=== PATIENT | male | born 1960 | race African-American/Black ===

== ENCOUNTER 2018-03-26 09:53 | Emergency (ER) | payer MEDICARE ==
[2018-03-26 10:16] LABS: INR-International Normal Ratio 1.1; PTT 36.5 SEC (22.9-36.1); Prothrombin Time 14.2 SEC (12.0-14.7)
--- NOTE | 2018-03-26 10:20 | CT ---
CT OF BRAIN PERFORMED WITHOUT CONTRAST ENHANCEMENT: Date: 03/26/18 HISTORY: Patient complaining of right facial droop for last 2 hours. FINDINGS: There is mild ventricular and sulcal prominence. There is decreased attenuation of the periventricula r white matter consistent with some chronic ischemic white matter change. No signs of intracerebral h emorrhage or extra-axial fluid collections. Some sclerotic bony change is seen in the region of the r ight mastoid air cells. The sinuses are clear. IMPRESSION: No acute intracranial abnormalities. Findings telephoned to ER at 1011 hours. CODE CR. POS: [facility]
[2018-03-26 10:24] LABS: #Basophils 0.1 thou/uL (0.0-0.2); #Eosinphils 0.2 thou/uL (0.0-0.7); #Lymphocytes 1.8 thou/uL (1.20-3.40); #Monocytes 0.9 thou/uL (0.11-0.59); #Neutrophils 3.9 thou/uL (1.40-6.50); %Lymphocytes 26.3 % (21.0-51.0); %Monocytes 13.1 % (0.0-10.0); %Neutrophils 55.6 % (42.0-75.0); Hemoglobin 10.7 g/dL (14.0-18.0); MDiff Complete? YES; Mean Corpuscular HGB CONC 29.7 g/dL (32.0-36.0); Mean Corpuscular Hemoglobin 23.8 pg (27.0-31.0); Mean Corpuscular Volume 80.1 fL (78.0-98.0); Mean Platelet Volume 7.6 fL (7.4-10.4); Platelet Count 306 thou/uL (130-400); RBC Distribution Width 15.1 % (11.5-14.5); Red Blood Cell (RBC) Count 4.48 mill/uL (4.70-6.10)
[2018-03-26 10:25] LABS: Anisocytosis SLIGHT = 6-15 cells (100X) (0-5/hpf); Hypochromia SLIGHT = 6-15 cells (100X) (0-5/hpf); PLT Morphology Comment Appears Adequate; Rouleaux Formation SLIGHT = 1-5 cells (100X) (None Seen)
[2018-03-26 10:26] LABS: ALT (SGPT) 15 U/L (8-55); AST (SGOT) 17 U/L (5-34); Alkaline Phosphatase 102 U/L (40-150); Anion Gap 17 mmol/L (10-20); BUN (Urea Nitrogen) 34 mg/dL (8.4-25.7); Bilirubin, Total 0.6 mg/dL (0.2-1.2); CK (CPK) 229 U/L (30-200); Calc. Creatinine Clearance 0 mL/min (70-130); Calcium 9.7 mg/dL (7.8-10.44); Carbon Dioxide 27 mmol/L (22-29); Chloride 97 mmol/L (98-107); Estimated GFR-MDRD 10; Globulin 3.6 g/dL (2.4-3.5); Glucose 243 mg/dL (70-105); Potassium 3.8 mmol/L (3.5-5.1); Protein, Total 7.6 g/dL (6.0-8.3); Sodium 137 mmol/L (136-145)
[2018-03-26 10:27] LABS: CKMB 6.1 ng/mL (0-6.6); Troponin I 0.014 ng/mL (< 0.028)
[2018-03-26] MEDS ORDERED: Aspirin 325 MG TAB ONE (11:13)
== END 2018-03-26 12:02 | disposition short-term general hospital (02) ==
LOC: NAV ERS 09:53
DX: R29.810 Facial weakness (principal); I13.2 Hypertensive heart and chronic kidney disease with heart failure and with stage 5 chronic kidney disease, or end stage renal disease; I50.9 Heart failure, unspecified; E11.22 Type 2 diabetes mellitus with diabetic chronic kidney disease; N18.6 End stage renal disease; Z79.4 Long term (current) use of insulin; Z79.899 Other long term (current) drug therapy; Z86.73 Personal history of transient ischemic attack (TIA), and cerebral infarction without residual deficits; Z87.891 Personal history of nicotine dependence
CPT/HCPCS: 36416; 70450; 80053; 82550; 82553; 84484; 85025; 85610; 85730; 93005

== ENCOUNTER 2018-06-16 18:12 | Inpatient (IN) | payer MEDICARE ==
[2018-06-16 18:38] VITALS: BMI 27.4
[2018-06-16] MEDS ORDERED: Bisacodyl 5 MG TAB PO PRN (19:53)
[2018-06-16] MEDS ORDERED: Ibuprofen 800 MG TAB PO PRN (20:08)
[2018-06-16] MEDS ORDERED: Acetaminophen 500 MG TAB PO PRN (20:08)
[2018-06-16] MEDS: Carvedilol 25 MG TAB PO SCH (20:35)
[2018-06-16] MEDS: Simvastatin 40 MG TAB PO SCH (20:35)
[2018-06-17] MEDS: Carvedilol 25 MG TAB PO SCH ×2 (08:54→20:22)
[2018-06-17] MEDS: Sevelamer Carbonate 800 MG TAB PO SCH ×3 (08:54→17:13)
[2018-06-17] MEDS: NIFEdipine XL 30 MG TAB PO SCH (08:55)
[2018-06-17] MEDS: Lisinopril 10 MG TAB PO SCH (08:55)
[2018-06-17] MEDS ORDERED: HUMULIN SC SCH (09:00)
[2018-06-17 13:42] LABS: ALT (SGPT) Less than 6 U/L (8-55); AST (SGOT) 19 U/L (5-34); Alkaline Phosphatase 82 U/L (40-150); Anion Gap 21 mmol/L (10-20); BUN (Urea Nitrogen) 66 mg/dL (8.4-25.7); Bilirubin, Total 0.4 mg/dL (0.2-1.2); Calc. Creatinine Clearance 9 mL/min (70-130); Carbon Dioxide 23 mmol/L (22-29); Chloride 90 mmol/L (98-107); Estimated GFR-MDRD 5; Globulin 3.7 g/dL (2.4-3.5); Glucose 111 mg/dL (70-105); Potassium 5.2 mmol/L (3.5-5.1); Protein, Total 6.7 g/dL (6.0-8.3); Sodium 129 mmol/L (136-145)
[2018-06-17] MEDS: Ibuprofen 800 MG TAB PO PRN (17:14)
[2018-06-17] MEDS: Simvastatin 40 MG TAB PO SCH (20:23)
[2018-06-17 21:13] LABS: Band 8 % (5-11); Eosinophils 8 % (0-10); Hemoglobin 7.6 g/dL (14.0-18.0); Lymphocytes 23 % (21-51); MDiff Complete? YES; Mean Corpuscular Hemoglobin 25.6 pg (27.0-31.0); Mean Corpuscular Volume 82.4 fL (78.0-98.0); Mean Platelet Volume 6.9 fL (7.4-10.4); Microcytosis SLIGHT = 6-15 cells (100X) (0-5/hpf); Monocytes 12 % (0-10); Neutrophil 49 % (42-75); Platelet Count 274 thou/uL (130-400); RBC Distribution Width 13.8 % (11.5-14.5); Red Blood Cell (RBC) Count 2.96 mill/uL (4.70-6.10); White Blood Cell (WBC) Count 6.9 thou/uL (4.8-10.8)
[2018-06-18] MEDS: Insulin NPH/Reg Insulin Hm 300 UNITS/3 ML VIAL SC SCH (09:44)
[2018-06-18] MEDS: Ibuprofen 800 MG TAB PO PRN ×2 (09:55→20:36)
[2018-06-18] MEDS: Carvedilol 25 MG TAB PO SCH ×2 (17:42→20:36)
[2018-06-18] MEDS: NIFEdipine XL 30 MG TAB PO SCH (17:42)
[2018-06-18] MEDS: Lisinopril 10 MG TAB PO SCH (17:43)
[2018-06-18] MEDS: Sevelamer Carbonate 800 MG TAB PO SCH ×3 (17:43→18:34)
--- NOTE | 2018-06-18 17:50 | PRG ---
DATE OF SERVICE: 06/17/2018 SUBJECTIVE: The patient feels well with only complaint of decreased vision secondary to cataracts. No pain in his eyes. No shortness of breath. No chest pain. No nausea or vomiting. Stable to righ t hip pain. OBJECTIVE: VITAL SIGNS: His temperature is 98.8, pulse 88, respirations 18, O2 sat 93% on room air. LUNGS: Few crackles in the bases. CARDIAC: Regular rhythm. ABDOMEN: Soft, nontender. SKIN AND EXTREMITIES: Displayed trace edema. No clubbing or cyanosis. His right hip shows healing incision. ASSESSMENT: 1. End-stage renal disease, on hemodialysis with missed dialysis, in need of extra dialysis obtained today and tomorrow. 2. Healing open reduction internal fixation of the right hip fracture. 2. Stable hypertension. 3. Diabetes, controlled to goal. PLAN: 1. Continue hemodialysis 3 times weekly. 2. Continue PT and OT. 3. Continue pain relief as needed. 4. Continue Accu-Cheks to monitor and titrate and control diabetes. 5. Continue to monitor vital signs closely and continue home blood pressure meds.
--- NOTE | 2018-06-18 17:59 | PRG ---
DATE OF SERVICE: 06/18/2018 SUBJECTIVE: The patient feels well with no dyspnea, shortness of breath, or chest pain. He is just returning from dialysis. OBJECTIVE: VITAL SIGNS: Temperature is 97, pulse 85, respirations 20, O2 sats 94% on room air. LUNGS: Decreased rales at the bases. CARDIAC: Regular rhythm. ABDOMEN: Soft, nontender. SKIN AND EXTREMITIES: Displayed no edema, clubbing, cyanosis. Right hip is healing well. LABORATORY DATA: Laboratories yesterday showed a BUN of 66, creatinine 11.79, sodium 129, potassium 5.2, chloride 90, bicarbonate 23. ASSESSMENT: 1. Increased congestive heart failure secondary to dialysis early this morning, appears to be improv ed after dialysis 2 days in a row. We will check labs in the a.m. 2. Healing right total hip fracture. We will continue PT and OT. 3. Diabetes, controlled to goal. 4. Blood pressure, controlled to goal. PLAN: 1. Continue PT and OT. 2. Repeat labs in the a.m. 3. Continue dialysis 3 times weekly.
--- NOTE | 2018-06-18 20:25 | HP ---
DATE OF ADMISSION: 06/16/2018 HISTORY OF PRESENT ILLNESS: The patient is a 58-year-old black male with a long history of hypertens ion, diabetes, subsequent complication of end-stage renal disease on hemodialysis who fell at his emma e on June 12 and suffered a right intertrochanteric hip fracture requiring open reduction and in ternal fixation. This was done on June 13 with no complications. He was seen in followup by [facility] carg[facility], Dr. Núñez, continued on dialysis, he was felt to be stable to be transferred to the [facility] for continued PT and OT. At present, he feels well. Minimal pain in his right h ip. No shortness of breath, chest pain, nausea, vomiting, or diarrhea. PAST MEDICAL HISTORY: As mentioned above: Remarkable for diabetes, cataracts, end-stage renal disea se, diastolic heart failure, hypertension. PAST SURGICAL HISTORY: Positive only for the fistula placement. MEDICATIONS: At this time include aspirin 81 daily, tramadol 50 q.6 hours as needed, sevelamer 2400 mg 3 times daily, nifedipine 30 mg daily, lisinopril 20 mg daily, Humulin 70/30 of 20 units subcu claudine ly, carvedilol 37.5 twice daily. He is a nonsmoker, nondrinker. He lives with his . ALLERGIES: He has no known allergies. REVIEW OF SYSTEMS: HEENT: Denies any headaches, dizziness, change in vision or hearing, hoarseness or dysphagia. Pulmonary: Denies cough, sputum production, pneumonia, asthma, tuberculosis. Cardiov ascular: Denies chest pain, orthopnea, paroxysmal nocturnal dyspnea or edema. Gastrointestinal: De nies nausea, vomiting, diarrhea, constipation, abdominal pain. Genitourinary: Denies dysuria, hemat uria, nocturia. Minimal urine output. Musculoskeletal: He has pain in his right hip at this time. Neurologic: Denies localized numbness, weakness in arms or extremities. PHYSICAL EXAMINATION: GENERAL: Patient is a middle-aged black male in no acute distress, oriented x3 and cooperative. VITAL SIGNS: Show him to have blood pressure 120/66, temperature is 98, pulse 85, respirations 20, O 2 sats 97% on room air. HEENT: Pupils are equal, round, and reactive to light and accommodation. Sclerae are anicteric. Co njunctivae pale. Oral mucous membranes well hydrated. NECK: Supple, no nodes or masses. JVP is not elevated. LUNGS: Clear. CARDIAC: Regular rhythm. No gallops or murmurs. ABDOMEN: Soft, nontender with no masses or organomegaly. SKIN/EXTREMITIES: Show healing incision over the right lateral hip. NEUROLOGICAL: Shows no focal findings. LABORATORY DATA: White count 6400, hematocrit 26, hemoglobin 8. Sodium is 132, potassium 4.4, chlor brigida 93, bicarbonate 28, BUN 42, creatinine 8.68, glucose 124, calcium 9.2, phosphorus 7.2. ASSESSMENT AND PLAN: A 58-year-old black male with a history of diabetes and hypertension with subse quent complication, end-stage renal disease on hemodialysis who had been doing well until he fell and suffered an intertrochanteric fracture of his right hip and is now status post open reduction and in ternal fixation. He is healing well, cooperating well with therapy and is admitted to [facility] for further therapy. He will be continued on dialysis 3 times weekly and will be continued on his home medications of lisinopril, nifedipine, and carvedilol for blood pressure control, Renvela for hyperph osphatemia, simvastatin 40 mg nightly and will be on Accu-Cheks q.a.c. and at bedtime and monitor magnolia peña.
[2018-06-18] MEDS: Simvastatin 40 MG TAB PO SCH (20:36)
[2018-06-19 05:54] LABS: Anion Gap 17 mmol/L (10-20); BUN (Urea Nitrogen) 38 mg/dL (8.4-25.7); Calc. Creatinine Clearance 14 mL/min (70-130); Calcium 9.5 mg/dL (7.8-10.44); Carbon Dioxide 30 mmol/L (22-29); Chloride 94 mmol/L (98-107); Estimated GFR-MDRD 9; Glucose 100 mg/dL (70-105); Potassium 4.3 mmol/L (3.5-5.1); Sodium 137 mmol/L (136-145)
[2018-06-19] MEDS: Insulin NPH/Reg Insulin Hm 300 UNITS/3 ML VIAL SC SCH (08:25)
[2018-06-19] MEDS: Ibuprofen 800 MG TAB PO PRN ×2 (08:31→20:30)
[2018-06-19] MEDS: Carvedilol 25 MG TAB PO SCH ×2 (17:50→20:29)
[2018-06-19] MEDS: NIFEdipine XL 30 MG TAB PO SCH (17:51)
[2018-06-19] MEDS: Sevelamer Carbonate 800 MG TAB PO SCH ×3 (17:51→17:52)
[2018-06-19] MEDS: Lisinopril 10 MG TAB PO SCH (17:51)
[2018-06-19] MEDS: Simvastatin 40 MG TAB PO SCH (20:30)
[2018-06-20] MEDS: Carvedilol 25 MG TAB PO SCH ×2 (09:30→21:00)
[2018-06-20] MEDS: Lisinopril 10 MG TAB PO SCH (09:30)
[2018-06-20] MEDS: NIFEdipine XL 30 MG TAB PO SCH (09:32)
[2018-06-20] MEDS: Sevelamer Carbonate 800 MG TAB PO SCH ×3 (09:35→17:26)
[2018-06-20] MEDS: Insulin NPH/Reg Insulin Hm 300 UNITS/3 ML VIAL SC SCH (09:35)
--- NOTE | 2018-06-20 18:05 | PRG ---
DATE OF SERVICE: 06/19/2018 SUBJECTIVE: The patient is just returning from dialysis, feels well with no complaints of shortness of breath, nausea and vomiting, abdominal pain. Has stable pain in his right hip. OBJECTIVE: VITAL SIGNS: Shows blood pressure is 115/69, temperature is 98, pulse 94, respirations 20, O2 sats 9 3% on room air. LUNGS: Clear. CARDIAC: Showed regular rhythm. ABDOMEN: Soft, nontender. SKIN AND EXTREMITIES: Display no edema, clubbing, cyanosis. LABORATORY: Shows Accu-Cheks range from 199-223, only on Accu-Chek 20 units Humulin in subcu every m orning. ASSESSMENT: 1. Stable end-stage renal disease on hemodialysis 3 times weekly. 2. Healing right intertrochanteric hip fracture. 3. Type 2 diabetes, fair control with Accu-Cheks less than 200. 4. Hypertension, controlled to goal. PLAN: Continue PT, OT. Continue pain relief. Continue dialysis 3 times weekly. Continue Accu-Chek s to monitor diabetes, but with no insulin unless greater than 200.
--- NOTE | 2018-06-20 19:03 | PRG ---
DATE OF SERVICE: 06/20/2018 SUBJECTIVE: The patient feels well. He has had a good day of therapy today, walked several times wi th the nurses up to 7 feet and has been outside and stated he is having controlled pain, only on Tyle nol and ibuprofen, not asking for anything stronger. Denying any shortness of breath, cough, sputum production, chest pain. ASSESSMENT: 1. Resolving right intertrochanteric hip fracture. 2. Stable end-stage renal disease on hemodialysis. 3. Hypertension, controlled to goal. 4. Type 2 diabetes, stable. PLAN: 1. Continue PT, OT. Continue hemodialysis. 2. Continue Accu-Cheks to monitor. 3. Diabetes. 4. Repeat labs on Saturday.
[2018-06-20] MEDS: Ibuprofen 800 MG TAB PO PRN (21:02)
[2018-06-20] MEDS: Simvastatin 40 MG TAB PO SCH (21:02)
[2018-06-21] MEDS: Sevelamer Carbonate 800 MG TAB PO SCH ×3 (08:36→16:28)
[2018-06-21] MEDS: Carvedilol 25 MG TAB PO SCH ×2 (08:36→21:22)
[2018-06-21] MEDS: Insulin NPH/Reg Insulin Hm 300 UNITS/3 ML VIAL SC SCH (08:37)
[2018-06-21] MEDS: NIFEdipine XL 30 MG TAB PO SCH (08:37)
[2018-06-21] MEDS: Lisinopril 10 MG TAB PO SCH (08:37)
[2018-06-21] MEDS: Ibuprofen 800 MG TAB PO PRN ×2 (08:38→21:22)
--- NOTE | 2018-06-21 16:05 | PRG ---
DATE OF SERVICE: 06/21/2018 SUBJECTIVE: Mr. Singh is doing well. He was seen on his way to dialysis. He apparently is getting stronger and was able to mcc pull himself up out of his bed. No concerns or questions. OBJECTIVE: VITAL SIGNS: He is afebrile, heart rate 84, respirations 18, oxygen saturation 99% on room air, bloo d pressure 157/75. CARDIOVASCULAR: S1, S2 plus. RESPIRATORY SYSTEM: Normal vesicular breath sounds. ABDOMEN: Soft, nontender, bowel sounds heard in all quadrants. EXTREMITIES: Without cyanosis or clubbing. Trace edema right leg, right hip incision with dressing. CENTRAL NERVOUS SYSTEM: Generalized weakness. IMPRESSION: 1. Status post fall and right hip fracture and open reduction internal fixation. 2. Diabetes mellitus type 2. 3. Hypertension. 4. End-stage renal disease on hemodialysis. 5. Dyslipidemia. PLAN: 1. Continue hemodialysis. He is back on his schedule Saturday, , Saturday. 2. 1800 calorie heart healthy, renal diet. 3. Accu-Cheks with sliding scale coverage. 4. Incision care. 5. Orthopedic precautions. 6. DVT and stress ulcer prophylaxis. 7. Decubitus precautions. 8. Routine laboratory values.
[2018-06-21] MEDS: Simvastatin 40 MG TAB PO SCH (21:22)
[2018-06-22] MEDS: Loperamide HCl 2 MG CAP PO PRN (04:49)
[2018-06-22] MEDS: Sevelamer Carbonate 800 MG TAB PO SCH ×3 (08:37→16:53)
[2018-06-22] MEDS: Carvedilol 25 MG TAB PO SCH ×2 (08:38→20:36)
[2018-06-22] MEDS: Lisinopril 10 MG TAB PO SCH (08:39)
[2018-06-22] MEDS: NIFEdipine XL 30 MG TAB PO SCH (08:39)
[2018-06-22] MEDS: Insulin NPH/Reg Insulin Hm 300 UNITS/3 ML VIAL SC SCH (08:42)
[2018-06-22] MEDS ORDERED: prednisoLONE 1% Ophth Susp 5 ml Bottle EA EYE SCH (11:00)
--- NOTE | 2018-06-22 15:24 | PRG ---
DATE OF SERVICE: 06/22/2018 SUBJECTIVE: Mr. Singh is resting comfortably. No family at bedside. He apparently is also on pred nisolone acetate eye drops and it has been started. OBJECTIVE: VITAL SIGNS: He is afebrile; heart rate 86; respirations 18; oxygen saturation 99% on room air; bloo d pressure was elevated this morning 185/82, this is before he got any of his medications. CARDIOVASCULAR SYSTEM: S1 and S2 plus. RESPIRATORY SYSTEM: Normal vesicular breath sounds. ABDOMEN: Soft, nontender, bowel sounds heard in all quadrants. EXTREMITIES: Without cyanosis or clubbing. Trace edema, right leg. CENTRAL NERVOUS SYSTEM: Generalized weakness. IMPRESSION: 1. Status post fall and right hip fracture, status post open reduction and internal fixation. 2. Diabetes mellitus, type 2. 3. Hypertension, not well controlled. 4. End-stage renal disease, on hemodialysis. 5. Dyslipidemia. PLAN: 1. Orthopedic precautions and incision care. 2. An 1800-calorie heart healthy, renal diet. 3. Hemodialysis. 4. DVT and stress ulcer prophylaxis. 5. Decubitus precautions. 6. Physical therapy. 7. Monitor blood pressure and adjust medications as needed. Dr. Flynn will be back tonight.
[2018-06-22] MEDS: Simvastatin 40 MG TAB PO SCH (20:36)
[2018-06-22] MEDS: Ibuprofen 800 MG TAB PO PRN (21:57)
[2018-06-23 05:13] LABS: #Basophils 0.3 thou/uL (0.0-0.2); #Eosinphils 1.5 thou/uL (0.0-0.7); #Lymphocytes 2.4 thou/uL (1.20-3.40); #Monocytes 1.6 thou/uL (0.11-0.59); #Neutrophils 6.4 thou/uL (1.40-6.50); %Basophils 2.5 % (0.0-1.0); %Eosinophils 12.3 % (0.0-10.0); %Monocytes 13.2 % (0.0-10.0); Hemoglobin 7.8 g/dL (14.0-18.0); Mean Corpuscular HGB CONC 30.4 g/dL (32.0-36.0); Mean Corpuscular Hemoglobin 25.3 pg (27.0-31.0); Mean Corpuscular Volume 83.4 fL (78.0-98.0); Mean Platelet Volume 5.8 fL (7.4-10.4); Platelet Count 418 thou/uL (130-400); RBC Distribution Width 14.1 % (11.5-14.5); Red Blood Cell (RBC) Count 3.09 mill/uL (4.70-6.10); White Blood Cell (WBC) Count 12.2 thou/uL (4.8-10.8)
[2018-06-23 05:31] LABS: ALT (SGPT) 6 U/L (8-55); AST (SGOT) 25 U/L (5-34); Albumin 3.2 g/dL (3.5-5.0); Alkaline Phosphatase 111 U/L (40-150); Anion Gap 17 mmol/L (10-20); BUN (Urea Nitrogen) 53 mg/dL (8.4-25.7); Bilirubin, Total 0.3 mg/dL (0.2-1.2); Calc. Creatinine Clearance 13 mL/min (70-130); Calcium 9.6 mg/dL (7.8-10.44); Carbon Dioxide 26 mmol/L (22-29); Chloride 95 mmol/L (98-107); Estimated GFR-MDRD 8; Globulin 3.4 g/dL (2.4-3.5); Glucose 132 mg/dL (70-105); Potassium 3.9 mmol/L (3.5-5.1); Protein, Total 6.6 g/dL (6.0-8.3); Sodium 134 mmol/L (136-145)
[2018-06-23] MEDS: Sevelamer Carbonate 800 MG TAB PO SCH ×3 (08:19→17:25)
[2018-06-23] MEDS: Carvedilol 25 MG TAB PO SCH ×2 (09:17→21:23)
[2018-06-23] MEDS: Lisinopril 10 MG TAB PO SCH (09:17)
[2018-06-23] MEDS: NIFEdipine XL 30 MG TAB PO SCH (09:18)
[2018-06-23] MEDS: Ibuprofen 800 MG TAB PO PRN ×2 (09:18→17:25)
[2018-06-23] MEDS: Insulin NPH/Reg Insulin Hm 300 UNITS/3 ML VIAL SC SCH (09:18)
[2018-06-23] MEDS: prednisoLONE 1% Ophth Susp 5 ml Bottle EA EYE SCH (09:19)
[2018-06-23] MEDS: Acetaminophen 500 MG TAB PO PRN (21:23)
[2018-06-23] MEDS: Simvastatin 40 MG TAB PO SCH (21:23)
--- NOTE | 2018-06-24 07:19 | PRG ---
DATE OF SERVICE: 06/23/2018 SUBJECTIVE: The patient feels well, sitting up in the bed, eating supper. He states he feels no bro[place] sea, vomiting, shortness of breath, chest pain. He is only having pain in his hip on ambulation, but not at rest. He is tolerating hemodialysis well. OBJECTIVE: VITAL SIGNS: Shows blood pressure is 135/63, temperature is 99.3, pulse 90, respirations 16, O2 sats 99% on room air. LUNGS: Clear. CARDIAC: Regular rhythm. ABDOMEN: Soft and nontender. Hip shows healing lateral incision. LABORATORY: White count 12,200, hematocrit 25, hemoglobin 7.8. Sodium 134, potassium 3.9, chloride 95, bicarbonate 26, BUN 53, creatinine 8.06, alkaline phosphatase 111, albumin 3.2. ASSESSMENT: 1. Resolving right intertrochanteric hip fracture. 2. Stable end-stage renal disease on hemodialysis. 3. Stable hypertension, controlled to goal. 4. Fairly, well controlled diabetes. PLAN: Continue PT, OT. Continue hemodialysis 3 times weekly. Continue Accu-Cheks to monitor and ti trate and control diabetes.
[2018-06-24] MEDS: prednisoLONE 1% Ophth Susp 5 ml Bottle EA EYE SCH (09:20)
[2018-06-24] MEDS: Sevelamer Carbonate 800 MG TAB PO SCH ×2 (17:19)
[2018-06-24] MEDS: Carvedilol 25 MG TAB PO SCH ×2 (17:19→20:23)
[2018-06-24] MEDS: Insulin NPH/Reg Insulin Hm 300 UNITS/3 ML VIAL SC SCH ×2 (17:19→17:24)
[2018-06-24] MEDS: Lisinopril 10 MG TAB PO SCH (17:22)
[2018-06-24] MEDS: NIFEdipine XL 30 MG TAB PO SCH (17:23)
[2018-06-24] MEDS: Simvastatin 40 MG TAB PO SCH (20:23)
[2018-06-24] MEDS: Ibuprofen 800 MG TAB PO PRN (20:23)
[2018-06-25 05:10] LABS: #Basophils 0.3 thou/uL (0.0-0.2); #Eosinphils 0.9 thou/uL (0.0-0.7); #Lymphocytes 2.4 thou/uL (1.20-3.40); #Monocytes 1.7 thou/uL (0.11-0.59); #Neutrophils 7.3 thou/uL (1.40-6.50); %Basophils 2.1 % (0.0-1.0); %Eosinophils 6.9 % (0.0-10.0); %Lymphocytes 19.1 % (21.0-51.0); %Monocytes 13.2 % (0.0-10.0); %Neutrophils 58.7 % (42.0-75.0); Hemoglobin 8.9 g/dL (14.0-18.0); Mean Corpuscular HGB CONC 30.2 g/dL (32.0-36.0); Mean Corpuscular Hemoglobin 25.2 pg (27.0-31.0); Mean Corpuscular Volume 83.3 fL (78.0-98.0); Mean Platelet Volume 6.4 fL (7.4-10.4); Platelet Count 454 thou/uL (130-400); RBC Distribution Width 14.2 % (11.5-14.5); Red Blood Cell (RBC) Count 3.52 mill/uL (4.70-6.10); White Blood Cell (WBC) Count 12.5 thou/uL (4.8-10.8)
[2018-06-25] MEDS: Sevelamer Carbonate 800 MG TAB PO SCH ×3 (08:06→16:46)
[2018-06-25] MEDS: Lisinopril 10 MG TAB PO SCH (08:06)
[2018-06-25] MEDS: Carvedilol 25 MG TAB PO SCH ×2 (08:07→20:40)
[2018-06-25] MEDS: Insulin NPH/Reg Insulin Hm 300 UNITS/3 ML VIAL SC SCH (08:07)
[2018-06-25] MEDS: prednisoLONE 1% Ophth Susp 5 ml Bottle EA EYE SCH (08:08)
[2018-06-25] MEDS: NIFEdipine XL 30 MG TAB PO SCH (08:08)
[2018-06-25 08:38] LABS: Bilirubin Negative (Negative); Blood, Urine Trace (Negative); Clarity Clear (Clear); Glucose, Urine (Dipstick) 100 mg/dL (Negative); Leukocyte Negative (Negative); Nitrite Negative (Negative); Protein, Urine (Dipstick) 100 mg/dL (Neg-Trace); Urobilinogen 0.2 mg/dL (0.2-1.0)
[2018-06-25 08:44] LABS: Bacteria/HPF None Seen HPF (None Seen); Crystals/HPF RARE SODIUM URATE HPF (Negative); RBC/HPF 0-3 HPF (0-3); Squamous Epithelial 0-3 HPF (0-3); WBC/HPF 0-3 HPF (0-3)
[2018-06-25] MEDS: Ibuprofen 800 MG TAB PO PRN ×2 (10:51→20:40)
[2018-06-25] MEDS: Acetaminophen 500 MG TAB PO PRN (13:55)
--- NOTE | 2018-06-25 18:07 | PRG ---
DATE OF PROGRESS NOTE: 06/24/2018 SUBJECTIVE: The patient is awake and alert, sitting in a chair, back from dialysis with no complaint s, feels well with no nausea and vomiting. Good appetite. No shortness of breath, decreasing pain i n his hip. OBJECTIVE: VITAL SIGNS: Blood pressure is 163/72, temperature 99.8, pulse 83, respirations 18, O2 sats 97% on r oom air. LUNGS: Clear. CARDIAC EXAMINATION: Showed regular rhythm. SKIN: Incision appears to be healing well. ASSESSMENT: 1. Resolving right hip fracture, status post open reduction and internal fixation. 2. Stable end-stage renal disease. 3. Stable hypertension. 4. Well-controlled diabetes. 5. Slight increase in white count. PLAN: Repeat CBC, comp met, continue PT, OT. Continue hemodialysis. Continue Accu-Cheks.
--- NOTE | 2018-06-25 18:15 | PRG ---
DATE OF PROGRESS NOTE: 06/25/2018 SUBJECTIVE: The patient feels well, sitting up in bed, visiting with family. Has cooperated well wi th therapy today. Still max transfers sit to stand, moderate stand to sit. Did walk 55 feet and 40 feet with a rolling walker, mild dizziness on standing and gait appears to be improving daily, but no t ready to do ADLs. Accu-Cheks have ranged from 124 to 177. White count 12,500, hematocrit 29, hemo globin 8.9. Urinalysis within normal limits. Right hip appears to be healing well. ASSESSMENT: 1. Resolving right hip intertrochanteric fracture status post open reduction and internal fixation. 2. Stable type 2 diabetes. 3. Hypertension, controlled to goal. 4. End-stage renal disease on hemodialysis, tolerating well. PLAN: 1. Continue PT/OT, is unable to maintain ADLs. 2. Continue hemodialysis for end-stage renal disease 3 times weekly. 3. Continue blood pressure control. 4. Continue Accu-Cheks, titrate and control diabetes.
[2018-06-25] MEDS ORDERED: Ondansetron ODT 4 MG TAB PO PRN (18:51)
[2018-06-25] MEDS: Simvastatin 40 MG TAB PO SCH (20:40)
[2018-06-26] MEDS: Sevelamer Carbonate 800 MG TAB PO SCH ×3 (08:10→17:13)
[2018-06-26] MEDS: Insulin NPH/Reg Insulin Hm 300 UNITS/3 ML VIAL SC SCH (08:11)
[2018-06-26] MEDS: Carvedilol 25 MG TAB PO SCH ×2 (08:11→20:52)
[2018-06-26] MEDS: Lisinopril 10 MG TAB PO SCH (08:11)
[2018-06-26] MEDS: NIFEdipine XL 30 MG TAB PO SCH (08:11)
[2018-06-26] MEDS: Ibuprofen 800 MG TAB PO PRN ×2 (08:12→15:27)
[2018-06-26] MEDS: prednisoLONE 1% Ophth Susp 5 ml Bottle EA EYE SCH (08:12)
[2018-06-26] MEDS: Simvastatin 40 MG TAB PO SCH (20:53)
[2018-06-27] MEDS: Ibuprofen 800 MG TAB PO PRN ×2 (06:13→20:50)
--- NOTE | 2018-06-27 07:41 | PRG ---
DATE OF SERVICE: 06/26/2018 SUBJECTIVE: The patient is sitting up in the bed, waiting for supper with no complaints of shortness of breath, chest pain, and decreasing leg pain. OBJECTIVE: GENERAL: Physical therapy states that the patient is unable to have therapy yesterday secondary to d ialysis. VITAL SIGNS: Show temperature of 98, pulse 83, respirations 18, O2 sats 98% on room air, blood press ure 141/65. LABORATORY DATA: White count 12,500, hematocrit 29, hemoglobin 8.9. Accu-Cheks range from 130-199. Hip incision is healing well. ASSESSMENT: 1. Resolving right hip intertrochanteric fracture status post open reduction and internal fixation. 2. Stable type 2 diabetes. 3. Stable hypertension. 4. End-stage renal disease, tolerating dialysis 3 times weekly. PLAN: 1. Continue PT, OT and discuss progress with therapy. 2. Continue hemodialysis 3 times weekly. 3. Continue to monitor Accu-Cheks and titrate and control diabetes. 4. Continue to monitor blood pressure.
[2018-06-27] MEDS: Carvedilol 25 MG TAB PO SCH ×2 (08:47→19:45)
[2018-06-27] MEDS: NIFEdipine XL 30 MG TAB PO SCH (08:48)
[2018-06-27] MEDS: Lisinopril 10 MG TAB PO SCH (08:49)
[2018-06-27] MEDS: Sevelamer Carbonate 800 MG TAB PO SCH ×3 (08:49→16:31)
[2018-06-27] MEDS: Insulin NPH/Reg Insulin Hm 300 UNITS/3 ML VIAL SC SCH (08:50)
[2018-06-27] MEDS: prednisoLONE 1% Ophth Susp 5 ml Bottle EA EYE SCH (08:50)
[2018-06-27] MEDS: Acetaminophen 500 MG TAB PO PRN (14:08)
[2018-06-27] MEDS: Loperamide HCl 2 MG CAP PO PRN ×2 (14:08→19:47)
[2018-06-27] MEDS: Simvastatin 40 MG TAB PO SCH (19:46)
[2018-06-28] MEDS: Lisinopril 10 MG TAB PO SCH (07:46)
[2018-06-28] MEDS: Sevelamer Carbonate 800 MG TAB PO SCH ×3 (07:46→18:37)
[2018-06-28] MEDS: Carvedilol 25 MG TAB PO SCH ×2 (07:47→20:19)
[2018-06-28] MEDS: NIFEdipine XL 30 MG TAB PO SCH (07:48)
--- NOTE | 2018-06-28 08:23 | PRG ---
DATE OF SERVICE: 06/28/2018. SUBJECTIVE: Mr. Singh is a very pleasant 58-year-old black male that fell and suffered a right inte rtrochanteric hip fracture. He had an open reduction and internal fixation done. He was stabilized with his hypertension, diabetes, end-stage renal disease on hemodialysis and diastolic congestive hea rt failure. Then, he was transferred to [facility] for physical therapy and occupati onal therapy to increase his strength and stamina. The patient is presently sleeping, but was awakened. He oriented fairly quickly, states he is doing well, has no complaints. With physical therapy yesterday, he walked 45 feet and then 30 feet. He is slowly progressing. OBJECTIVE: VITAL SIGNS: Reveal blood pressure 155/84 last night, pulse 77 to 86, respirations 18, O2 sat 99% on room air, T-max 98.0. GENERAL: This is a well-developed, well-nourished, slightly obese black male in no apparent distress at this time. HEENT: Reveals normocephalic, nontraumatic cranium. Nose and throat are somewhat dry. NECK: Supple, without mass, nodes or bruits. CHEST: Clear to auscultation. No rales, rhonchi, wheezes or cough is heard. CARDIOVASCULAR: Hear reveals a regular rate and rhythm without murmurs, gallops or rubs. ABDOMEN: Obese, soft, nontender, without organomegaly, normal bowel sounds are noted. No rebound or guarding is noted. GENITOURINARY: Deferred. EXTREMITIES: Reveal no clubbing, cyanosis or edema. ASSESSMENT: 1. Fractured right intertrochanteric hip with resolving pain. 2. Open reduction and internal fixation of the same. 3. Type 2 diabetes, stable. 4. Hypertension. 5. End-stage renal disease on hemodialysis 3 times a week. 6. Diastolic congestive heart failure. PLAN: 1. Continue hemodialysis 3 times a week. 2. Continue physical therapy and occupational therapy. 3. Continue to monitor the patient's diabetes with Accu-Cheks a.c. and at bedtime. 4. Continue to monitor the patient's blood pressure closely. 5. Continue to monitor the patient for signs and symptoms of congestive heart failure. 6. Continue present therapy.
[2018-06-28] MEDS: Acetaminophen 500 MG TAB PO PRN (08:32)
[2018-06-28] MEDS: prednisoLONE 1% Ophth Susp 5 ml Bottle EA EYE SCH (08:32)
[2018-06-28] MEDS: Insulin NPH/Reg Insulin Hm 300 UNITS/3 ML VIAL SC SCH (08:33)
[2018-06-28] MEDS: Ibuprofen 800 MG TAB PO PRN ×2 (08:33→20:22)
[2018-06-28] MEDS: Simvastatin 40 MG TAB PO SCH (20:20)
--- NOTE | 2018-06-29 06:47 | PRG ---
DATE OF SERVICE: 06/29/2018. SUBJECTIVE: Mr. Singh is a very pleasant 58-year-old black male. Unfortunately, he fell, suffered a right intertrochanteric hip fracture. He had to have an open reduction and internal fixation done. Eventually, he was stabilized and transferred to [facility] for PT and OT. He has comorbidities of hypertension, diabetes, and end-stage renal disease. He also has diastolic congesti ve heart failure. The patient is awake and states he is doing very well. He states he had a great day yesterday and is looking forward to restarting his therapy tomorrow. OBJECTIVE: VITAL SIGNS: This morning reveal blood pressure 136/77, pulse 91, respirations 18-20, O2 sat 97%-99% on room air, T-max 98.9. GENERAL: This is a well-developed, well-nourished, slightly obese black male in no apparent distress at this time. HEENT: Reveals normocephalic, nontraumatic cranium. Pupils equal, round, and reactive. Extraocular movements intact. Nose and throat are slightly dry. NECK: Supple, without mass, nodes or bruits. LUNGS: Chest is clear to auscultation. No rales, rhonchi or wheezes are noted. No cough is noted. HEART: Reveals a regular rate and rhythm without murmurs, gallops or rubs. ABDOMEN: Obese, soft, and nontender. No organomegaly is noted. Normal bowel sounds are noted in al l 4 quadrants. No rebound or guarding is noted. GENITOURINARY: Deferred. EXTREMITIES: Reveal no clubbing, cyanosis or edema. NEUROLOGIC: Right intertrochanteric hip area is covered. He complains of no significant pain there. ASSESSMENT: 1. Fractured right intertrochanteric hip, status post open reduction and internal fixation. 2. Diabetes type 2. 3. Hypertension. 4. End-stage renal disease on hemodialysis 3 times a week. 5. Diastolic congestive heart failure. PLAN: 1. Restart physical therapy and occupational therapy tomorrow. 2. Continue to monitor the patient diabetes with Accu-Cheks a.c. and at bedtime. 3. Continue to monitor the patient's blood pressure closely. 4. Continue hemodialysis 3 times a week. 5. Monitor the patient for signs and symptoms of congestive heart failure. 6. Continue present course of therapy.
[2018-06-29] MEDS: Ibuprofen 800 MG TAB PO PRN ×2 (07:49→20:13)
[2018-06-29] MEDS: Sevelamer Carbonate 800 MG TAB PO SCH ×3 (08:14→17:34)
[2018-06-29] MEDS: Carvedilol 25 MG TAB PO SCH ×2 (08:15→20:13)
[2018-06-29] MEDS: Insulin NPH/Reg Insulin Hm 300 UNITS/3 ML VIAL SC SCH (08:18)
[2018-06-29] MEDS: Lisinopril 10 MG TAB PO SCH (08:20)
[2018-06-29] MEDS: NIFEdipine XL 30 MG TAB PO SCH (08:23)
[2018-06-29] MEDS: prednisoLONE 1% Ophth Susp 5 ml Bottle EA EYE SCH (09:08)
[2018-06-29] MEDS: Simvastatin 40 MG TAB PO SCH (20:13)
[2018-06-30 05:50] LABS: Anion Gap 18 mmol/L (10-20); BUN (Urea Nitrogen) 68 mg/dL (8.4-25.7); Calc. Creatinine Clearance 14 mL/min (70-130); Calcium 9.5 mg/dL (7.8-10.44); Carbon Dioxide 25 mmol/L (22-29); Chloride 96 mmol/L (98-107); Estimated GFR-MDRD 9; Glucose 168 mg/dL (70-105); Potassium 3.5 mmol/L (3.5-5.1); Sodium 135 mmol/L (136-145)
[2018-06-30] MEDS: Sevelamer Carbonate 800 MG TAB PO SCH ×3 (08:27→17:19)
[2018-06-30] MEDS: Carvedilol 25 MG TAB PO SCH ×2 (08:27→20:00)
[2018-06-30] MEDS: Insulin NPH/Reg Insulin Hm 300 UNITS/3 ML VIAL SC SCH (08:28)
[2018-06-30] MEDS: prednisoLONE 1% Ophth Susp 5 ml Bottle EA EYE SCH (08:29)
[2018-06-30] MEDS: Ibuprofen 800 MG TAB PO PRN ×2 (08:29→20:01)
[2018-06-30] MEDS: Lisinopril 10 MG TAB PO SCH (08:29)
[2018-06-30] MEDS: NIFEdipine XL 30 MG TAB PO SCH (08:29)
[2018-06-30] MEDS: Acetaminophen 500 MG TAB PO PRN (11:27)
[2018-06-30] MEDS: Simvastatin 40 MG TAB PO SCH (20:01)
[2018-06-30] MEDS: Loperamide HCl 2 MG CAP PO PRN (20:01)
[2018-07-01] MEDS: Sevelamer Carbonate 800 MG TAB PO SCH ×3 (08:22→16:53)
[2018-07-01] MEDS: Insulin NPH/Reg Insulin Hm 300 UNITS/3 ML VIAL SC SCH (08:23)
[2018-07-01] MEDS: Lisinopril 10 MG TAB PO SCH (08:23)
[2018-07-01] MEDS: Carvedilol 25 MG TAB PO SCH ×2 (08:23→16:52)
[2018-07-01] MEDS: Ibuprofen 800 MG TAB PO PRN (08:24)
[2018-07-01] MEDS: prednisoLONE 1% Ophth Susp 5 ml Bottle EA EYE SCH (08:24)
[2018-07-01] MEDS: NIFEdipine XL 30 MG TAB PO SCH (08:24)
[2018-07-01] MEDS: Acetaminophen 500 MG TAB PO PRN (14:53)
[2018-07-01] MEDS: Simvastatin 40 MG TAB PO SCH (20:07)
[2018-07-02] MEDS: Ibuprofen 800 MG TAB PO PRN ×2 (01:09→18:01)
[2018-07-02] MEDS: Sevelamer Carbonate 800 MG TAB PO SCH ×3 (08:39→17:59)
[2018-07-02] MEDS: Insulin NPH/Reg Insulin Hm 300 UNITS/3 ML VIAL SC SCH (08:40)
[2018-07-02] MEDS: Carvedilol 25 MG TAB PO SCH ×2 (08:40→17:59)
[2018-07-02] MEDS: Lisinopril 10 MG TAB PO SCH (08:41)
[2018-07-02] MEDS: prednisoLONE 1% Ophth Susp 5 ml Bottle EA EYE SCH (08:41)
[2018-07-02] MEDS: NIFEdipine XL 30 MG TAB PO SCH (08:42)
[2018-07-02] MEDS ORDERED: Lisinopril 10 MG TAB PO SCH ×2 (17:37→17:45)
--- NOTE | 2018-07-02 19:11 | PRG ---
DATE OF SERVICE: 07/01/2018 SUBJECTIVE: The patient is returning back from dialysis today, is nauseated with no shortness of filippo ath, chest pain or dizziness. OBJECTIVE: VITAL SIGNS: Show temperature of 97.9, pulse 83, respirations 18, O2 sats 97% on room air, blood pre ssure 174/81. LUNGS: Clear. CARDIAC: Shows regular rhythm. ABDOMEN: Soft and nontender. SKIN AND EXTREMITIES: Showed no edema, clubbing or cyanosis. There is a healing incision in the rig ht lateral leg. PT states that the patient is walking 55 feet and 54 feet with rest breaks in betwee n, making progress, but not met any goals yet. ASSESSMENT: 1. Resolving right hip fracture status post open reduction and internal fixation. 2. Stable end-stage renal disease on hemodialysis 3 times weekly. 3. Stable type 2 diabetes. Accu-Cheks ranging usually less than 200. 4. Diastolic heart failure, stable. PLAN: 1. Continue hemodialysis 3 times weekly. 2. Increase insulin to 25 units daily. 3. Give Zofran as needed for nausea. 4. Continue PT, OT and discussed with the therapist.
--- NOTE | 2018-07-02 19:23 | PRG ---
DATE OF SERVICE: 06/30/2018 SUBJECTIVE: The patient is resting in bed after therapy, feels well with no complaints, having decre asing pain in his leg. No headaches or dizziness. OBJECTIVE: VITAL SIGNS: Temperature is 97.5, pulse 86, respirations 18, O2 sats 97% on room air, blood pressure 178/82. LUNGS: Clear. CARDIAC: Showed regular rhythm. ABDOMEN: Soft and nontender. SKIN AND EXTREMITIES: Show no edema, clubbing, cyanosis. Accu-Cheks range from , sodium 135, potassium 3.5, chloride 96, bicarbonate 25, BUN is 68, creat inine 7.55. Abdomen is soft and nontender. Right hip incision healing well. ASSESSMENT: 1. Resolving right hip fracture, status post open reduction fixation. 2. Stable type 2 diabetes. 3. Stable hypertension. 4. Stable end-stage renal disease on hemodialysis 3 times weekly. 5. Asymptomatic diastolic heart failure. PLAN: 1. Continue PT, OT. Continue Accu-Cheks to monitor and titrate and control diabetes. 2. Continue hemodialysis 3 times weekly. 3. Continue to monitor shortness of breath.
--- NOTE | 2018-07-02 20:10 | PRG ---
DATE OF SERVICE: 07/02/2018 SUBJECTIVE: The patient feels well, lying in bed. He has done therapy today with no difficulty and is asking when he can be discharged home. He is to follow up with orthopedic surgeon in 2 days. OBJECTIVE: VITAL SIGNS: Blood pressure, however, is elevated 192/86 to 171/75 temperature is 97, respirations 2 0, O2 sats 99% on room air. LUNGS: Clear. CARDIAC: Shows regular rhythm. ABDOMEN: Soft and nontender. ASSESSMENT AND PLAN: 1. Hypertension with persistent lack of control. We will increase lisinopril 25 daily. 2. Type 2 diabetes on increased insulin 25 units, Humulin every morning. We will continue to monito r. 3. End-stage renal disease on hemodialysis 3 times weekly. 4. Right hip fracture status post open reduction and internal fixation, improving with physical therapy assistant apy. He will follow up with orthopedic surgeon in 2 days.
[2018-07-02] MEDS: Acetaminophen 500 MG TAB PO PRN (20:21)
[2018-07-02] MEDS: Simvastatin 40 MG TAB PO SCH (20:21)
[2018-07-03] MEDS: Ibuprofen 800 MG TAB PO PRN ×2 (08:44→16:12)
[2018-07-03] MEDS: prednisoLONE 1% Ophth Susp 5 ml Bottle EA EYE SCH (09:11)
[2018-07-03] MEDS: Insulin NPH/Reg Insulin Hm 300 UNITS/3 ML VIAL SC SCH ×3 (09:48→16:06)
[2018-07-03] MEDS: Sevelamer Carbonate 800 MG TAB PO SCH ×3 (11:09→16:08)
[2018-07-03] MEDS: Carvedilol 25 MG TAB PO SCH ×2 (11:09→16:13)
[2018-07-03] MEDS: Lisinopril 10 MG TAB PO SCH (16:03)
[2018-07-03] MEDS: NIFEdipine XL 30 MG TAB PO SCH (16:04)
[2018-07-03] MEDS: cloNIDine 0.1mg/24 Hour PATCH TD SCH (18:48)
[2018-07-03] MEDS: Simvastatin 40 MG TAB PO SCH (20:22)
[2018-07-04] MEDS: Sevelamer Carbonate 800 MG TAB PO SCH ×3 (08:18→17:41)
[2018-07-04] MEDS: Lisinopril 10 MG TAB PO SCH (08:18)
[2018-07-04] MEDS: NIFEdipine XL 30 MG TAB PO SCH (08:20)
[2018-07-04] MEDS: Carvedilol 25 MG TAB PO SCH ×2 (08:21→17:37)
[2018-07-04] MEDS: prednisoLONE 1% Ophth Susp 5 ml Bottle EA EYE SCH (08:21)
[2018-07-04] MEDS: Ibuprofen 800 MG TAB PO PRN ×2 (08:38→15:44)
[2018-07-04] MEDS: Insulin NPH/Reg Insulin Hm 300 UNITS/3 ML VIAL SC SCH (08:38)
[2018-07-04] MEDS: Acetaminophen 500 MG TAB PO PRN (10:47)
[2018-07-04] MEDS: Loperamide HCl 2 MG CAP PO PRN ×2 (15:13→15:56)
[2018-07-04] MEDS: Simvastatin 40 MG TAB PO SCH (20:36)
[2018-07-05] MEDS: Ibuprofen 800 MG TAB PO PRN ×2 (02:53→20:48)
[2018-07-05] MEDS: Sevelamer Carbonate 800 MG TAB PO SCH ×3 (08:17→17:12)
[2018-07-05] MEDS: Carvedilol 25 MG TAB PO SCH ×2 (08:17→17:12)
[2018-07-05] MEDS: Insulin NPH/Reg Insulin Hm 300 UNITS/3 ML VIAL SC SCH (08:18)
[2018-07-05] MEDS: Lisinopril 10 MG TAB PO SCH (08:19)
[2018-07-05] MEDS: prednisoLONE 1% Ophth Susp 5 ml Bottle EA EYE SCH (08:19)
[2018-07-05] MEDS: NIFEdipine XL 30 MG TAB PO SCH (08:19)
[2018-07-05] MEDS: Simvastatin 40 MG TAB PO SCH (20:48)
[2018-07-06] MEDS: Carvedilol 25 MG TAB PO SCH ×2 (08:19→17:30)
[2018-07-06] MEDS: Sevelamer Carbonate 800 MG TAB PO SCH ×3 (08:21→17:30)
[2018-07-06] MEDS: Insulin NPH/Reg Insulin Hm 300 UNITS/3 ML VIAL SC SCH (08:22)
[2018-07-06] MEDS: Lisinopril 10 MG TAB PO SCH (08:22)
[2018-07-06] MEDS: prednisoLONE 1% Ophth Susp 5 ml Bottle EA EYE SCH (08:23)
[2018-07-06] MEDS: NIFEdipine XL 30 MG TAB PO SCH (08:23)
[2018-07-06] MEDS: Ibuprofen 800 MG TAB PO PRN ×2 (08:24→20:45)
[2018-07-06] MEDS: Loperamide HCl 2 MG CAP PO PRN (17:31)
[2018-07-06] MEDS: Simvastatin 40 MG TAB PO SCH (20:45)
[2018-07-07] MEDS: Ibuprofen 800 MG TAB PO PRN ×2 (07:20→20:23)
[2018-07-07] MEDS: prednisoLONE 1% Ophth Susp 5 ml Bottle EA EYE SCH (08:26)
[2018-07-07] MEDS: Insulin NPH/Reg Insulin Hm 300 UNITS/3 ML VIAL SC SCH (08:26)
[2018-07-07] MEDS: NIFEdipine XL 30 MG TAB PO SCH ×2 (08:27→20:22)
[2018-07-07] MEDS: Carvedilol 25 MG TAB PO SCH ×2 (08:27→17:59)
[2018-07-07] MEDS: Lisinopril 10 MG TAB PO SCH (08:27)
[2018-07-07] MEDS: Sevelamer Carbonate 800 MG TAB PO SCH ×3 (08:27→17:59)
[2018-07-07] MEDS: Acetaminophen 500 MG TAB PO PRN (12:03)
[2018-07-07] MEDS: Simvastatin 40 MG TAB PO SCH (20:23)
[2018-07-08] MEDS: Carvedilol 25 MG TAB PO SCH ×2 (08:02→17:32)
[2018-07-08] MEDS: Sevelamer Carbonate 800 MG TAB PO SCH ×3 (08:03→17:32)
[2018-07-08] MEDS: Insulin NPH/Reg Insulin Hm 300 UNITS/3 ML VIAL SC SCH (08:03)
[2018-07-08] MEDS: prednisoLONE 1% Ophth Susp 5 ml Bottle EA EYE SCH (08:04)
[2018-07-08] MEDS: Lisinopril 10 MG TAB PO SCH (08:04)
[2018-07-08] MEDS: Ibuprofen 800 MG TAB PO PRN ×2 (08:08→20:28)
[2018-07-08] MEDS: NIFEdipine XL 30 MG TAB PO SCH (20:28)
[2018-07-08] MEDS: Simvastatin 40 MG TAB PO SCH (20:28)
[2018-07-09] MEDS: Sevelamer Carbonate 800 MG TAB PO SCH ×3 (08:05→17:05)
[2018-07-09] MEDS: prednisoLONE 1% Ophth Susp 5 ml Bottle EA EYE SCH (08:06)
[2018-07-09] MEDS: Insulin NPH/Reg Insulin Hm 300 UNITS/3 ML VIAL SC SCH (08:06)
[2018-07-09] MEDS: Ibuprofen 800 MG TAB PO PRN ×2 (08:06→20:32)
[2018-07-09] MEDS: Lisinopril 10 MG TAB PO SCH (08:07)
[2018-07-09] MEDS: Carvedilol 25 MG TAB PO SCH ×2 (08:08→17:05)
--- NOTE | 2018-07-09 18:17 | PRG ---
DATE OF SERVICE: 07/07/2018 SUBJECTIVE: The patient feels well, no complaints. Has had dialysis today. Only mild nausea. OBJECTIVE: VITAL SIGNS: He was found this morning to have blood pressure of 186/85, temperature is 98, pulse 82 , respirations 20, O2 sats 97% on room air. Blood pressure did decrease to 147/84 after morning medi cations. Accu-Cheks have shown ranging from 112-354. LUNGS: Clear. CARDIAC: Regular rhythm. ABDOMEN: Soft and nontender. MUSCULOSKELETAL: Lateral hip incision healing well. Physical therapy states the patient walked 230 feet, 180 feet and 50 feet separately today and is getting stronger daily, but still with a need of m ore treatment. ASSESSMENT: 1. Resolving right hip fracture status post open reduction internal fixation. 2. Stable end-stage renal disease on hemodialysis. 3. Hypertension with a.m. elevation and will change nifedipine to nighttime and monitor blood pressu re twice daily. 4. Diabetes, slightly out of control. We will continue to monitor with sliding scale.
--- NOTE | 2018-07-09 18:22 | PRG ---
DATE OF SERVICE: 07/09/2018 SUBJECTIVE: The patient is awake and alert, feeling well, cooperating with therapy. No headaches, d izziness, shortness of breath or nausea. OBJECTIVE: Shows blood pressure this morning is improved to 144/66, temperature is 98, pulse 81, res pirations 18, O2 sat 100% on room air. Laboratory show Accu-Chek stable today at 112 to 136 during the day, but did increase to 354 last nig ht and will monitor on increased insulin. ASSESSMENT: 1. End-stage renal disease, stable on hemodialysis . 2. Right hip fracture, improving daily and walking with therapy today 460 feet with 3 seated breaks, improved functional transfers. PLAN: 1. Continue PT, OT. 2. Continue Accu-Cheks monitor and titrate and control diabetes. 3. Continue to monitor blood pressure on nifedipine at night, lisinopril in the morning. 4. Continue to monitor Accu-Cheks with increased Novolin in the morning.
--- NOTE | 2018-07-09 18:25 | PRG ---
DATE OF SERVICE: 07/08/2018 SUBJECTIVE: The patient feels well, asking when he can be discharged home, having no nausea today. OBJECTIVE: Shows that he did work with physical therapist today. Stable blood pressure. Did walk 2 20 feet with a rolling walker, wheelchair back up and found that he was depressed at this. He did no t sleep well last night. He is going to dialysis today. His blood pressure was improved slightly with a blood pressure 169/79 this morning, temperature is 97 , pulse 85, respirations 18, O2 sats 97%. Accu-Cheks range 129 and 354. ASSESSMENT: 1. Uncontrolled diabetes. We will adjust sliding scale and will increase Novolin to 30 units every morning. 2. Hypertension, improved, but still elevated in the a.m. Continue to monitor. 3. End-stage renal disease on hemodialysis, stable. 4. Right hip fracture, status post open reduction internal fixation, slowly improving. PLAN: Continue PT, OT. Continue hemodialysis. Increase NPH to 30 units every morning. Continue to monitor vital signs and Accu-Cheks.
--- NOTE | 2018-07-09 19:02 | PRG ---
DATE OF SERVICE: 07/09/2018 SUBJECTIVE: The patient lying in bed, resting well with no complaints, no agitation and eating fairl y well. OBJECTIVE: VITAL SIGNS: Temperature is 98.7, pulse 84, respirations 20, O2 sats 98% on room air, blood pressure of 133/64. Patient is eating 75%-100% of meals and is working well with therapy. LUNGS: Clear. CARDIAC: Regular rhythm. ABDOMEN: Soft and nontender. LABORATORY DATA: Accu-Cheks range 147-291. Patient walking 230 feet x1 with a . ASSESSMENT: 1. Resolving right hip fracture status post open reduction internal fixation. 2. Stable hypertension, good control. We will increase lisinopril. 3. Stable type 2 diabetes, appears to be increased somewhat later. 4. End-stage renal disease on hemodialysis 3 times weekly. PLAN: Follow up with surgeon tomorrow. Continue Accu-Cheks to monitor and titrate and control diabe keya. Continue blood pressure control. Continue PT, OT, and pain relief as needed.
--- NOTE | 2018-07-09 19:07 | PRG ---
DATE OF SERVICE: 07/04/2018 SUBJECTIVE: The patient feels well, sitting up. Somewhat exhausted and nauseated after therapy ____ _ visiting with . He has been able to sit to stand and walk 260 feet today. OBJECTIVE: LUNGS: Clear. CARDIAC: Shows regular rhythm. ABDOMEN: Soft and nontender. SKIN AND EXTREMITIES: Display no edema, clubbing, cyanosis, but healing incision right lateral hip. VITAL SIGNS: Temperature is 98, pulse 82, respirations 18, O2 sats 99% on room air, blood pressure 1 49/77. ASSESSMENT: 1. Resolving right hip open reduction internal fixation. 2. Stable end-stage renal disease on hemodialysis. 3. Stable diabetes, fair control. 4. Stable hypertension, controlled to goal. PLAN: Continue PT, OT. Continue hemodialysis. Continue Accu-Cheks to monitor and titrate and contr ol diabetes.
[2018-07-09] MEDS: Simvastatin 40 MG TAB PO SCH (20:32)
[2018-07-09] MEDS: NIFEdipine XL 30 MG TAB PO SCH (20:32)
[2018-07-10 05:29] LABS: #Basophils 0.1 thou/uL (0.0-0.2); #Eosinphils 1.2 thou/uL (0.0-0.7); #Lymphocytes 2.3 thou/uL (1.20-3.40); #Monocytes 0.9 thou/uL (0.11-0.59); #Neutrophils 3.2 thou/uL (1.40-6.50); %Basophils 1.5 % (0.0-1.0); %Eosinophils 15.1 % (0.0-10.0); %Lymphocytes 29.7 % (21.0-51.0); %Monocytes 12.2 % (0.0-10.0); %Neutrophils 41.6 % (42.0-75.0); Hemoglobin 9.2 g/dL (14.0-18.0); Mean Corpuscular HGB CONC 30.8 g/dL (32.0-36.0); Mean Corpuscular Hemoglobin 25.3 pg (27.0-31.0); Mean Platelet Volume 6.9 fL (7.4-10.4); Platelet Count 223 thou/uL (130-400); Red Blood Cell (RBC) Count 3.65 mill/uL (4.70-6.10); White Blood Cell (WBC) Count 7.7 thou/uL (4.8-10.8)
[2018-07-10 05:44] LABS: ALT (SGPT) 8 U/L (8-55); Albumin 3.4 g/dL (3.5-5.0); Alkaline Phosphatase 103 U/L (40-150); Anion Gap 24 mmol/L (10-20); BUN (Urea Nitrogen) 59 mg/dL (8.4-25.7); Bilirubin, Total 0.3 mg/dL (0.2-1.2); Calc. Creatinine Clearance 12 mL/min (70-130); Calcium 10.2 mg/dL (7.8-10.44); Carbon Dioxide 18 mmol/L (22-29); Chloride 100 mmol/L (98-107); Estimated GFR-MDRD 8; Globulin 3.7 g/dL (2.4-3.5); Glucose 112 mg/dL (70-105); Protein, Total 7.1 g/dL (6.0-8.3); Sodium 137 mmol/L (136-145)
[2018-07-10 06:13] LABS: AST (SGOT) 16 U/L (5-34)
[2018-07-10 06:15] LABS: Potassium 4.1 mmol/L (3.5-5.1)
[2018-07-10] MEDS: Carvedilol 25 MG TAB PO SCH ×2 (08:13→17:33)
[2018-07-10] MEDS: Sevelamer Carbonate 800 MG TAB PO SCH ×3 (08:13→17:32)
[2018-07-10] MEDS: Ibuprofen 800 MG TAB PO PRN (08:13)
[2018-07-10] MEDS: Lisinopril 10 MG TAB PO SCH (08:14)
[2018-07-10] MEDS: prednisoLONE 1% Ophth Susp 5 ml Bottle EA EYE SCH (08:15)
[2018-07-10] MEDS: Insulin NPH/Reg Insulin Hm 300 UNITS/3 ML VIAL SC SCH (08:16)
[2018-07-10] MEDS: cloNIDine 0.1mg/24 Hour PATCH TD SCH (17:39)
[2018-07-10] MEDS: Simvastatin 40 MG TAB PO SCH (20:32)
[2018-07-10] MEDS: NIFEdipine XL 30 MG TAB PO SCH (20:32)
[2018-07-11] MEDS: Ibuprofen 800 MG TAB PO PRN (08:18)
[2018-07-11] MEDS: Carvedilol 25 MG TAB PO SCH ×2 (08:19→17:30)
[2018-07-11] MEDS: Sevelamer Carbonate 800 MG TAB PO SCH ×3 (08:19→17:31)
[2018-07-11] MEDS: Lisinopril 10 MG TAB PO SCH (08:20)
[2018-07-11] MEDS: prednisoLONE 1% Ophth Susp 5 ml Bottle EA EYE SCH (08:23)
[2018-07-11] MEDS: Insulin NPH/Reg Insulin Hm 300 UNITS/3 ML VIAL SC SCH (09:28)
[2018-07-11] MEDS: Simvastatin 40 MG TAB PO SCH (21:15)
[2018-07-11] MEDS: NIFEdipine XL 30 MG TAB PO SCH (21:15)
[2018-07-11] MEDS: Loperamide HCl 2 MG CAP PO PRN (21:15)
[2018-07-12] MEDS: prednisoLONE 1% Ophth Susp 5 ml Bottle EA EYE SCH (08:35)
[2018-07-12] MEDS: Sevelamer Carbonate 800 MG TAB PO SCH ×3 (08:36→17:38)
[2018-07-12] MEDS: Loperamide HCl 2 MG CAP PO PRN ×2 (08:38→21:02)
[2018-07-12] MEDS: Acetaminophen 500 MG TAB PO PRN (08:38)
[2018-07-12] MEDS: Ibuprofen 800 MG TAB PO PRN (08:39)
[2018-07-12] MEDS: Carvedilol 25 MG TAB PO SCH ×2 (08:41→17:15)
[2018-07-12] MEDS: Lisinopril 10 MG TAB PO SCH (08:42)
[2018-07-12] MEDS: Insulin NPH/Reg Insulin Hm 300 UNITS/3 ML VIAL SC SCH (08:45)
--- NOTE | 2018-07-12 09:47 | PRG ---
DATE OF SERVICE: 07/11/2018 SUBJECTIVE: The patient feels well. He is up in the [place], working with Occupational Therapy. No co mplaints of pain in his leg after taking pain medication. Discussed with therapy, who states that he should be ready for discharge next week, to follow up with home health care and we will begin planni ng with case management. OBJECTIVE: VITAL SIGNS: His blood pressure still increased to 188/88 in the morning, temperature 98, pulse 88, respirations 18, O2 sats 100% on room air. LUNGS: Clear. CARDIAC EXAMINATION: Shows regular rhythm. ABDOMEN: Soft and nontender. SKIN AND EXTREMITIES: Showed no edema, clubbing, cyanosis. The right hip incision is healed well. NEUROLOGICAL: Intact. ASSESSMENT: 1. Stable end-stage renal disease, on routine dialysis 3 times weekly. 2. Persistent hypertension with lack of control in the morning despite switching nifedipine tonight and we will increase to 60 mg nightly. 3. Diabetes, controlled to goal. 4. Resolving hip fracture. PLAN: Increase nifedipine to 60 mg nightly. Continue insulin therapy 30 units subcu daily. Continu e hemodialysis 3 times weekly. Continue PT/OT and plan for discharge next week.
--- NOTE | 2018-07-12 09:53 | PRG ---
DATE OF SERVICE: 07/10/2018 SUBJECTIVE: The patient is lying in the room, eating well, has had no nausea and vomiting today. He has had a good day with physical therapy, and he is asking when he can be discharged home. He state s he is walking in the [place]. OBJECTIVE: His vital signs showed blood pressure 152/72, temperature is 98, pulse 78, respirations 2 0, O2 sats 98% on room air, blood pressure 137/68. His physical therapist's report states that melissa sanchez walked 150 feet with a rolling walker with 7/10 pain controlled with pain medication and responded to voice commands and cues. Lungs are clear. Cardiac Examination: Shows regular rhythm. Hip inci sameer is healed well with kyaw removed. LABORATORY DATA: Laboratories show a white count of 7700, hematocrit 29, hemoglobin 9.2. Sodium 137 , potassium 4.1, chloride 100, bicarbonate 18, BUN 59, creatinine 8.8, albumin 3.4. Accu-Cheks range from 112-193. ASSESSMENT: 1. Resolving right hip fracture, status post open reduction and internal fixation with kyaw remov ed. No evidence of infection. 2. Stable end-stage renal disease, on hemodialysis, 3 times weekly. 3. Blood pressure with improved control with nifedipine at night, lisinopril in the morning. 4. Diabetes, controlled to goal. PLAN: Continue PT/OT. Continue hemodialysis. Discuss discharge planning with physical therapy.
--- NOTE | 2018-07-12 10:11 | PRG ---
DATE OF SERVICE: 07/12/2018 SUBJECTIVE: The patient feels well, sitting in bed, eating breakfast, remembers that he is going emma e in several days and is very happy. Denies any complaints of pain in his leg. OBJECTIVE: VITAL SIGNS: His blood pressure is still occasionally elevated in the morning, but is improved on th e increased nifedipine and is now 128/78, temperature is 98, pulse 79, respirations 18, O2 sats 98% o n room air. LUNGS: Clear. CARDIAC: Shows regular rhythm. ABDOMEN: Soft and nontender. Right hip incision healed well. ASSESSMENT: 1. Resolving right hip fracture, status post open reduction internal fixation. 2. Stable end-stage renal disease on hemodialysis. 3. Hypertension with improved control. 4. Diabetes, controlled to goal. PLAN: Continue PT, OT. Planning for discharge on 07/15/2018 with follow up with PCP, Dr. Koch at [facility] and dialysis in his outpatient dialysis clinic.
[2018-07-12] MEDS: NIFEdipine XL 30 MG TAB PO SCH (21:03)
[2018-07-12] MEDS: Simvastatin 40 MG TAB PO SCH (21:03)
[2018-07-13] MEDS: Ibuprofen 800 MG TAB PO PRN (08:24)
[2018-07-13] MEDS: Carvedilol 25 MG TAB PO SCH ×2 (08:25→17:58)
[2018-07-13] MEDS: Sevelamer Carbonate 800 MG TAB PO SCH ×3 (08:25→17:59)
[2018-07-13] MEDS: Lisinopril 10 MG TAB PO SCH (08:26)
[2018-07-13] MEDS: prednisoLONE 1% Ophth Susp 5 ml Bottle EA EYE SCH (08:28)
[2018-07-13] MEDS: Acetaminophen 500 MG TAB PO PRN (08:32)
[2018-07-13] MEDS: Insulin NPH/Reg Insulin Hm 300 UNITS/3 ML VIAL SC SCH (08:35)
[2018-07-13] MEDS: NIFEdipine XL 30 MG TAB PO SCH (20:19)
[2018-07-13] MEDS: Simvastatin 40 MG TAB PO SCH (20:20)
[2018-07-13] MEDS: Loperamide HCl 2 MG CAP PO PRN (20:20)
[2018-07-14] MEDS: Carvedilol 25 MG TAB PO SCH ×2 (08:20→16:37)
[2018-07-14] MEDS: Insulin NPH/Reg Insulin Hm 300 UNITS/3 ML VIAL SC SCH (08:20)
[2018-07-14] MEDS: Sevelamer Carbonate 800 MG TAB PO SCH ×3 (08:20→16:38)
--- NOTE | 2018-07-14 08:20 | PRG ---
DATE OF SERVICE: 07/13/2018 SUBJECTIVE: The patient feels well, no complaints. Anticipating discharge next week. Therapy tomor row and dialysis the day after with subsequent discharge. OBJECTIVE: VITAL SIGNS: His blood pressure is 154/76, temperature is 98.8, pulse 88, respirations 18, O2 sats 9 9% on room air. LUNGS: Clear. CARDIAC: Shows regular rhythm. ABDOMEN: Soft and nontender. SKIN AND EXTREMITIES: Display no edema, clubbing, cyanosis. MUSCULOSKELETAL: Completely healed right hip incision. Physical therapy states the patient is stabl e to be discharged next week. ASSESSMENT: 1. Resolving hip fracture status post open reduction and internal fixation. 2. Stable end-stage renal disease on hemodialysis. 3. Hypertension, controlled to goal. 4. Diabetes, controlled to goal. PLAN: Continue PT, OT. Dialysis until 07/16. Discharged home at that time to follow up with PCP.
[2018-07-14] MEDS: prednisoLONE 1% Ophth Susp 5 ml Bottle EA EYE SCH (08:21)
[2018-07-14] MEDS: Lisinopril 10 MG TAB PO SCH (08:21)
[2018-07-14] MEDS: Ibuprofen 800 MG TAB PO PRN (08:26)
--- NOTE | 2018-07-14 08:27 | PRG ---
DATE OF SERVICE: 07/14/2018 SUBJECTIVE: The patient feels well, sitting up eating breakfast, visiting with , preparing for t herapy today. He is having no pain in his leg. No shortness of breath or chest pain. OBJECTIVE: VITAL SIGNS: Shows temperature is 98.3, pulse 80, respirations 20, O2 sats 98% on room air, blood pr essure is 113/57. LUNGS: Clear. CARDIAC EXAMINATION: Shows regular rhythm. ABDOMEN: Soft and nontender with no masses or organomegaly. Right hip shows a healing lateral incis ion. Physical therapy states that the patient is able to maintain ADLs, walking 80 feet x3 with a rolling walker. ASSESSMENT: 1. Resolving right hip fracture, status post open reduction and internal fixation. 2. Stable end-stage renal disease, on hemodialysis 3 times weekly. 3. Hypertension, controlled to goal. 4. Diabetes, controlled to goal. PLAN: PT/OT today. Hemodialysis tomorrow. Monitor vital signs closely. Discharge in 2 days.
[2018-07-14] MEDS: Acetaminophen 500 MG TAB PO PRN (14:09)
[2018-07-14] MEDS: NIFEdipine XL 30 MG TAB PO SCH (19:59)
[2018-07-14] MEDS: Simvastatin 40 MG TAB PO SCH (19:59)
[2018-07-14] MEDS: Loperamide HCl 2 MG CAP PO PRN (19:59)
[2018-07-15 07:29] VITALS: TEMP 97
[2018-07-15] MEDS: Sevelamer Carbonate 800 MG TAB PO SCH ×3 (08:06→16:38)
[2018-07-15] MEDS: prednisoLONE 1% Ophth Susp 5 ml Bottle EA EYE SCH (08:07)
[2018-07-15] MEDS: Insulin NPH/Reg Insulin Hm 300 UNITS/3 ML VIAL SC SCH (08:07)
[2018-07-15] MEDS: Ibuprofen 800 MG TAB PO PRN (08:09)
[2018-07-15] MEDS: Carvedilol 25 MG TAB PO SCH ×2 (08:22→16:38)
[2018-07-15] MEDS: Lisinopril 10 MG TAB PO SCH (08:22)
[2018-07-15 08:23] VITALS: BP 154/76
[2018-07-15] MEDS: Acetaminophen 500 MG TAB PO PRN (16:38)
--- NOTE | 2018-07-16 00:02 | DIS ---
DATE OF ADMISSION: 06/18/2018 DATE OF DISCHARGE: 07/15/2018 FINAL DIAGNOSES: 1. Right hip fracture, status post open reduction and internal fixation, healing well, walking with walker with therapy and will follow up with outpatient therapy with home health 2. End-stage renal disease, stable on hemodialysis 3 times weekly being followed by his wet machine operator , Dr. Núñez. 3. Hypertension, controlled to goal. 4. Type 2 diabetes, insulin-dependent, controlled to goal. 5. Deconditioning, resolved. HOSPITAL COURSE: The patient is a 58-year-old black male with a long history of hypertension, diabet es, subsequent complication, end-stage renal disease on hemodialysis who suffered a right intertrocha nteric hip fracture on 06/12/2018 and underwent open reduction and internal fixation on 06/12/2018 an d was transferred to [facility] on 06/16/2018 and has done well since that time, gradually improving his strength and is now walking with a walker with minimal pain, controlled only with ibup rofen 800 three times daily as needed. He has been continued on his aspirin 81 daily and has not req uired tramadol, continued on sevelamer 24 mg 3 times daily, nifedipine 60 mg daily, carvedilol 37.5 t wice daily and lisinopril 25 mg daily, as well as a clonidine patch 0.1 mg weekly. He will follow up with his PCP in the next 1-2 weeks and orthopedic surgeon has seen him 2 weeks ago. We will follow up in 1 month and we will follow up with Nephrology and dialysis 3 times weekly.
== END 2018-07-15 18:16 | disposition home health service (06) | DRG 559 ==
LOC: NAV ACUTE 18:12
PROVIDERS: ADMIT Internal Medicine; ATTEND Internal Medicine
DX: S72.141D Displaced intertrochanteric fracture of right femur, subsequent encounter for closed fracture with routine healing (principal); N18.6 End stage renal disease; I13.2 Hypertensive heart and chronic kidney disease with heart failure and with stage 5 chronic kidney disease, or end stage renal disease; I50.32 Chronic diastolic (congestive) heart failure; E11.22 Type 2 diabetes mellitus with diabetic chronic kidney disease; Z99.2 Dependence on renal dialysis; Z79.4 Long term (current) use of insulin; H26.9 Unspecified cataract; E66.9 Obesity, unspecified; E78.5 Hyperlipidemia, unspecified; Z68.27 Body mass index [BMI] 27.0-27.9, adult
CPT/HCPCS: 36415; 36416; 80048; 80053; 81003; 81015; 85025; 87070; 87205; G8978-GP-CL; G8979-GP-CJ; Q0162

== ENCOUNTER 2020-03-02 19:15 | Inpatient (IN) | payer MEDICARE ==
[2020-03-02] MEDS ORDERED: Bisacodyl 5 MG TAB PO PRN (20:58)
[2020-03-02] MEDS ORDERED: Calcium Acetate 667 MG CAP PO PRN (20:59)
[2020-03-02] MEDS ORDERED: Artificial Tear Sol 15 ML BOT EA EYE PRN (21:00)
[2020-03-02] MEDS: Carvedilol 25 MG TAB PO SCH (21:49)
[2020-03-02 22:06] VITALS: BMI 24.6
[2020-03-03 05:37] LABS: #Basophils 0.3 thou/uL (0.0-0.2); #Eosinphils 0.6 thou/uL (0.0-0.7); #Lymphocytes 1.3 thou/uL (1.20-3.40); #Monocytes 1.4 thou/uL (0.11-0.59); #Neutrophils 13.3 thou/uL (1.40-6.50); %Basophils 1.6 % (0.0-1.0); %Eosinophils 3.5 % (0.0-10.0); %Lymphocytes 7.4 % (21.0-51.0); %Monocytes 8.4 % (0.0-10.0); %Neutrophils 79.1 % (42.0-75.0); Hemoglobin 8.9 g/dL (14.0-18.0); Hypochromia MODERATE=16-30 cells (100X) (0-5/hpf); MDiff Complete? YES; Mean Corpuscular HGB CONC 29.9 g/dL (32.0-36.0); Mean Corpuscular Hemoglobin 25.5 pg (27.0-31.0); Mean Corpuscular Volume 85.2 fL (78.0-98.0); Mean Platelet Volume 6.2 fL (7.4-10.4); Platelet Count 372 thou/uL (130-400); Platelet Morphology Comment Appears Adequate; RBC Distribution Width 17.7 % (11.5-14.5); Red Blood Cell (RBC) Count 3.51 mill/uL (4.70-6.10); White Blood Cell (WBC) Count 16.8 thou/uL (4.8-10.8)
[2020-03-03 05:42] LABS: ALT (SGPT) 16 U/L (8-55); AST (SGOT) 18 U/L (5-34); Albumin 2.7 g/dL (3.5-5.0); Alkaline Phosphatase 97 U/L (40-110); Anion Gap 15 mmol/L (10-20); BUN (Urea Nitrogen) 38 mg/dL (8.4-25.7); Bilirubin, Total 0.3 mg/dL (0.2-1.2); Calc. Creatinine Clearance 14 mL/min (70-130); Calcium 8.9 mg/dL (7.8-10.44); Carbon Dioxide 30 mmol/L (22-29); Chloride 99 mmol/L (98-107); Estimated GFR-MDRD 10; Globulin 3.6 g/dL (2.4-3.5); Glucose 125 mg/dL (70-105); Potassium 5.6 mmol/L (3.5-5.1); Protein, Total 6.3 g/dL (6.0-8.3); Sodium 138 mmol/L (136-145)
[2020-03-03] MEDS: Calcium Acetate 667 MG CAP PO SCH ×3 (08:24→18:24)
[2020-03-03] MEDS: Carvedilol 25 MG TAB PO SCH ×2 (08:25→21:15)
[2020-03-03] MEDS: HumuLIN 70/30 (300 UNITS/3 ML VIAL) SC SCH (08:26)
[2020-03-03] MEDS: Losartan Potassium 50 MG TAB PO SCH (08:27)
[2020-03-03] MEDS: NIFEdipine XL 30 MG TAB PO SCH (08:27)
[2020-03-03] MEDS: prednisoLONE 1% Ophth Susp 5 ml Bottle EA EYE SCH (08:29)
[2020-03-03] MEDS: Atorvastatin Calcium 20 MG TAB PO SCH (21:16)
[2020-03-04] MEDS: HumuLIN 70/30 (300 UNITS/3 ML VIAL) SC SCH (08:16)
[2020-03-04] MEDS: prednisoLONE 1% Ophth Susp 5 ml Bottle EA EYE SCH (08:17)
[2020-03-04] MEDS: NIFEdipine XL 30 MG TAB PO SCH (08:17)
[2020-03-04] MEDS: Calcium Acetate 667 MG CAP PO SCH ×3 (08:18→18:01)
[2020-03-04] MEDS: Carvedilol 25 MG TAB PO SCH ×2 (08:18→20:38)
[2020-03-04] MEDS: Losartan Potassium 50 MG TAB PO SCH (08:19)
[2020-03-04] MEDS ORDERED: Ondansetron ODT 4 MG TAB PO PRN (09:34)
--- NOTE | 2020-03-04 09:40 | PRG ---
DATE OF SERVICE: 03/04/2020 SUBJECTIVE: Mr. Singh is resting in bed. Complains of minimal nausea. Denies any vomiting. Denies any heartburn. No new medications. OBJECTIVE: VITAL SIGNS: He is afebrile, heart rate 94, respirations 18, oxygen saturation 98% on room air, T-max was more per last night at 99.9. I do not see from this morning. Blood pressure 161/76. CARDIOVASCULAR SYSTEM: S1 and S2 plus. RESPIRATORY SYSTEM: Normal vesicular breath sounds. ABDOMEN: Soft, nontender. Bowel sounds heard in all quadrants. EXTREMITIES: Without cyanosis or clubbing. IMPRESSION: 1. Diabetes mellitus type 2. 2. Hypertension. 3. Dyslipidemia. 4. End-stage renal disease. 5. Right-sided pleural effusion, status post thoracotomy. 6. History of cerebrovascular accident. There is still left-sided weakness. PLAN: 1. Continue current medications. 2. 1800 calorie heart healthy ADA renal diet. 3. Accu-Cheks with sliding scale coverage. 4. DVT prophylaxis with PlexiPulses. 5. Decubitus precautions. 6. Stress ulcer prophylaxis. 7. Continue therapy. 8. Hemodialysis. 9. Monitor for any other signs and symptoms of infection. 10. Dr. Flynn on-call this weekend. Job ID: [id number]
--- NOTE | 2020-03-04 15:29 | HP ---
PRINCIPAL DIAGNOSIS: Significant deconditioning due to recent hospitalization for acute hypoxemic respiratory failure and right pleural effusion requiring thoracotomy and total lung decortication. HISTORY OF PRESENT ILLNESS: This is a pleasant 59-year-old male, who is legally blind, was admitted to the hospital with syncopal episode and low blood pressure. He initially was treated with IV fluids and discharged home from the ER. He apparently had another syncopal episode and so presented back to the emergency room. CT brain was negative. Chest x-ray showed a large right pleural effusion with shift. He was noted to be hypoxemic. He underwent diagnostic and therapeutic thoracentesis. Cytology was negative for malignancy. He required 1 unit of blood transfusion due to anemia. He had a bronchoscopy, which was complicated by bronchospasm and hypoxemia requiring intubation. He underwent video-assisted thoracoscopy with muscle sparing thoracotomy and pleural decortication. His chest tubes have all been removed. Currently, he was titrated down to room air. He was felt to be significantly deconditioned that they felt swing bed for therapy would be the good option for him. The patient is seen on his way to dialysis. He denies any questions or concerns. He is tolerating his medications. PAST MEDICAL HISTORY: 1. End-stage renal disease, on hemodialysis Saturday, , and Saturday. 2. Diabetes mellitus, type 2. 3. Hypertension. 4. Dyslipidemia. 5. Legally blind. 6. CVA with residual left-sided weakness. 7. Recent episode of syncope. PAST SURGICAL HISTORY: Left AV graft placement. FAMILY HISTORY: Mom apparently had cancer, unknown primary. PSYCHOSOCIAL HISTORY: He quit smoking in 1994. Apparently, he has smoked for 25+ years. Denies any alcohol or recreational drug abuse. and lives with his . ALLERGIES: NO KNOWN DRUG ALLERGIES. MEDICATIONS: He has been transferred here on the following medications: 1. Lipitor 20 mg daily. 2. PhosLo 1334 mg b.i.d. p.r.n. and 2668 mg p.o. t.i.d. with meals. 3. Carvedilol 37.5 mg b.i.d. 4. Humulin 70/30, 20 units subcu daily. 5. Cozaar 50 mg daily. 6. Procardia XL 60 mg daily. 7. Prednisolone eye drops 1 drop to each eye. REVIEW OF SYSTEMS: GENERAL: The patient denies any fever, chills, or arthralgia, but does complain of decreased endurance. CARDIOVASCULAR SYSTEM: Denies any chest pain, shortness of breath, palpitations, PND, orthopnea, or pedal edema. RESPIRATORY SYSTEM: Denies any chronic cough, expectoration, or pleuritic-type chest pain. Resolved shortness of breath. No hemoptysis. GASTROINTESTINAL SYSTEM: Denies any nausea, vomiting, diarrhea, constipation, hematemesis, melena, or hematochezia. GENITOURINARY SYSTEM: Denies any frequency, urgency, dysuria, or hematuria. CENTRAL NERVOUS SYSTEM: Two episodes of syncope prior to last hospitalization, none since then. Denies any focal numbness or weakness. He does have residual left-sided weakness from his CVA. HEENT: He is legally blind, which is chronic. Denies any difficulty with speech or swallowing. EXTREMITIES: Occasional arthralgia. SKIN: Denies any rash. PHYSICAL EXAMINATION: GENERAL: Pleasant 59-year-old male, who is in no distress and denies any concerns. VITAL SIGNS: He is afebrile. Heart rate is 91, respirations 18, oxygen saturation 97% on room air, blood pressure was 198/93. He is on his way to dialysis. HEENT: Normocephalic and atraumatic. Legally blind. NECK: No JVD, thyromegaly, cervical adenopathy, or throat exudates. No carotid bruits. CARDIOVASCULAR SYSTEM: S1 and S2 plus. Rate and rhythm regular. RESPIRATORY SYSTEM: Normal vesicular breath sounds heard in all lung porter. ABDOMEN: Soft and nontender. Bowel sounds heard in all quadrants. EXTREMITIES: Without cyanosis or clubbing. Trace edema. CENTRAL NERVOUS SYSTEM: Awake and responsive. Cranial nerves 2 through 12 intact. Minimal left-sided weakness. LABORATORY VALUES: White count is 16.8, H and H are 8.9 and 29.9. White count was 15.1 on the 6th. Sodium 138, potassium 5.6, BUN and creatinine 38 and 6.87. Blood sugars are 125, 137, 86, and 106. IMPRESSION: 1. Diabetes mellitus, type 2. 2. Hypertension. 3. Dyslipidemia. 4. End-stage renal disease, on hemodialysis. 5. History of cerebrovascular accident with residual left-sided weakness. 6. Recent right pleural effusion requiring thoracentesis and eventually thoracotomy and decortication. 7. Leukocytosis. 8. Anemia of chronic disease. 9. Deconditioning. PLAN: 1. Continue current medications. 2. 1800-calorie heart healthy ADA renal diet. 3. Accu-Cheks with sliding scale coverage. 4. DVT prophylaxis with PlexiPulses. 5. Decubitus precautions. 6. Stress ulcer prophylaxis. 7. Continue hemodialysis. 8. Monitor for any other signs or symptoms of infection. 9. PT/OT to eval and treat. 10. Dietary consult. 11. Routine laboratory values. 12. Discussed with the patient in detail and all questions answered. 13. Monitor respiratory status. 14. No family at bedside. Job ID: [id number]
[2020-03-04] MEDS: Atorvastatin Calcium 20 MG TAB PO SCH (20:38)
[2020-03-05 05:30] LABS: #Basophils 0.2 thou/uL (0.0-0.2); #Eosinphils 0.6 thou/uL (0.0-0.7); #Lymphocytes 1.2 thou/uL (1.20-3.40); #Monocytes 1.1 thou/uL (0.11-0.59); #Neutrophils 8.3 thou/uL (1.40-6.50); %Basophils 1.4 % (0.0-1.0); %Lymphocytes 10.8 % (21.0-51.0); %Monocytes 9.6 % (0.0-10.0); %Neutrophils 73.3 % (42.0-75.0); Hemoglobin 8.4 g/dL (14.0-18.0); Mean Corpuscular HGB CONC 29.5 g/dL (32.0-36.0); Mean Corpuscular Hemoglobin 25.2 pg (27.0-31.0); Mean Corpuscular Volume 85.4 fL (78.0-98.0); Mean Platelet Volume 6.9 fL (7.4-10.4); Platelet Count 368 thou/uL (130-400); RBC Distribution Width 17.7 % (11.5-14.5); Red Blood Cell (RBC) Count 3.33 mill/uL (4.70-6.10); White Blood Cell (WBC) Count 11.3 thou/uL (4.8-10.8)
[2020-03-05] MEDS: prednisoLONE 1% Ophth Susp 5 ml Bottle EA EYE SCH (07:51)
[2020-03-05] MEDS: Calcium Acetate 667 MG CAP PO SCH ×3 (07:51→16:27)
[2020-03-05] MEDS: NIFEdipine XL 30 MG TAB PO SCH (07:54)
[2020-03-05] MEDS: HumuLIN 70/30 (300 UNITS/3 ML VIAL) SC SCH (07:54)
[2020-03-05] MEDS: Losartan Potassium 50 MG TAB PO SCH (07:54)
[2020-03-05] MEDS: Carvedilol 25 MG TAB PO SCH ×2 (07:54→20:51)
[2020-03-05] MEDS: Atorvastatin Calcium 20 MG TAB PO SCH (20:51)
--- NOTE | 2020-03-06 08:13 | PRG ---
DATE OF SERVICE: 03/05/2020 SUBJECTIVE: The patient is lying in the bed, resting. No complaints. Nurses have no concerns also. OBJECTIVE: VITAL SIGNS: Show temperature is 98, pulse is 82, respirations are 20, O2 saturations are 96% on room air, blood pressure is 158/72. Accu-Cheks 132 to 168. LUNGS: Clear. CARDIAC: Shows regular rhythm. ABDOMEN: Soft and nontender. SKIN AND EXTREMITIES: Showed no edema, clubbing, or cyanosis. NEUROLOGICAL: Shows persistent left-sided weakness. ASSESSMENT: 1. Stable type 2 diabetes. 2. Persistent left hemiparesis secondary to cerebrovascular accident. 3. Hypertension, controlled to goal. 4. End-stage renal disease, on hemodialysis. PLAN: 1. Continue PT, OT. 2. Continue Accu-Cheks to monitor and titrate and control diabetes. 3. Continue DVT and stress ulcer prophylaxis. Job ID: [id number]
[2020-03-06] MEDS: Carvedilol 25 MG TAB PO SCH ×2 (09:21→20:08)
[2020-03-06] MEDS: HumuLIN 70/30 (300 UNITS/3 ML VIAL) SC SCH (09:21)
[2020-03-06] MEDS: Calcium Acetate 667 MG CAP PO SCH ×3 (09:21→16:50)
[2020-03-06] MEDS: prednisoLONE 1% Ophth Susp 5 ml Bottle EA EYE SCH (09:22)
[2020-03-06] MEDS: NIFEdipine XL 30 MG TAB PO SCH (09:22)
[2020-03-06] MEDS: Losartan Potassium 50 MG TAB PO SCH (09:22)
[2020-03-06] MEDS: HumaLOG 300 UNITS/3 ML VIAL SC PRN (12:08)
[2020-03-06] MEDS: Acetaminophen 500 MG TAB PO PRN ×2 (12:08→20:09)
--- NOTE | 2020-03-06 18:27 | PRG ---
DATE OF SERVICE: 03/06/2020 SUBJECTIVE: The patient is awake and alert, preparing to eat supper, has had some elevated blood pressure today and some mild pain, which has been treated with Tylenol. Denies any shortness of breath, chest pain, or abdominal pain. OBJECTIVE: NEUROLOGIC: Shows persistent left-sided weakness. LUNGS: Clear. CARDIAC: Regular rhythm. ABDOMEN: Soft, nontender. VITAL SIGNS: Temperature is 98, pulse 87, respirations 20, O2 sats 100% on room air, blood pressure was up to 213/97, but after taking medications down to 150/79. LABORATORY DATA: Yesterday showed white count down to 11,300, . Accu-Cheks ranged from 120 to 168. ASSESSMENT: 1. Stable end-stage renal disease, on hemodialysis. 2. Stable diabetes. 3. Labile hypertension, but appears to be medications. 4. Persistent left hemiplegia. PLAN: 1. Continue PT/OT. 2. Continue to monitor blood pressure closely. 3. Continue hemodialysis. Job ID: [id number]
[2020-03-06] MEDS: Atorvastatin Calcium 20 MG TAB PO SCH (20:09)
[2020-03-07] MEDS: Calcium Acetate 667 MG CAP PO SCH ×3 (08:31→16:37)
[2020-03-07] MEDS: Carvedilol 25 MG TAB PO SCH ×2 (08:31→21:19)
[2020-03-07] MEDS: HumuLIN 70/30 (300 UNITS/3 ML VIAL) SC SCH (08:32)
[2020-03-07] MEDS: Losartan Potassium 50 MG TAB PO SCH (08:33)
[2020-03-07] MEDS: NIFEdipine XL 30 MG TAB PO SCH (08:33)
[2020-03-07] MEDS: prednisoLONE 1% Ophth Susp 5 ml Bottle EA EYE SCH (08:33)
--- NOTE | 2020-03-07 13:31 | PRG ---
DATE OF SERVICE: 03/07/2020 SUBJECTIVE: Mr. Singh is up in his chair. He just finished lunch. He denies any questions or concerns. He is on contact isolation due to loose stools yesterday. He has not had any since yesterday. Most likely attributed to his Nephrocaps, but we will give him till tomorrow morning. If he has not had a bowel movement, we will discontinue. Contact isolation. OBJECTIVE: VITAL SIGNS: He is afebrile, heart rate 81, respirations 20, oxygen saturation 93% on room air, and blood pressure 134/80. CARDIOVASCULAR SYSTEM: S1 and S2 plus. RESPIRATORY SYSTEM: Normal vesicular breath sounds. ABDOMEN: Soft and nontender. Bowel sounds heard in all quadrants. EXTREMITIES: Without cyanosis or clubbing. CENTRAL NERVOUS SYSTEM: Improving deconditioning. LABORATORY VALUES: White count is 11.3 and H and H are 8.4 and 28.5. Blood sugars are 120, 150, 120, and 181. IMPRESSION: 1. Diabetes mellitus type 2. 2. Hypertension. 3. Dyslipidemia. 4. End-stage renal disease. 5. Right-sided pleural effusion, status post thoracotomy. 6. History of cerebrovascular accident with residual left-sided weakness. PLAN: 1. Continue current medications. 2. 1800 calorie heart healthy ADA renal diet. 3. Hemodialysis on Saturday, , and Saturday. 4. Accu-Cheks with sliding scale coverage. 5. Physical therapy. 6. Routine laboratory values. 7. Monitor respiratory status. Job ID: [id number]
[2020-03-07] MEDS: Atorvastatin Calcium 20 MG TAB PO SCH (21:19)
[2020-03-07] MEDS: Loperamide HCl 2 MG CAP PO PRN ×2 (21:19→23:05)
[2020-03-08] MEDS: Carvedilol 25 MG TAB PO SCH ×2 (08:20→19:57)
[2020-03-08] MEDS: Calcium Acetate 667 MG CAP PO SCH ×3 (08:20→16:54)
[2020-03-08] MEDS: HumuLIN 70/30 (300 UNITS/3 ML VIAL) SC SCH (08:21)
[2020-03-08] MEDS: Losartan Potassium 50 MG TAB PO SCH (08:22)
[2020-03-08] MEDS: prednisoLONE 1% Ophth Susp 5 ml Bottle EA EYE SCH (08:26)
[2020-03-08] MEDS: NIFEdipine XL 30 MG TAB PO SCH (08:26)
[2020-03-08] MEDS: Loperamide HCl 2 MG CAP PO PRN (08:28)
[2020-03-08] MEDS: Acetaminophen 500 MG TAB PO PRN (16:56)
[2020-03-08] MEDS: HumaLOG 300 UNITS/3 ML VIAL SC PRN (17:56)
[2020-03-08] MEDS: Atorvastatin Calcium 20 MG TAB PO SCH (19:57)
[2020-03-09] MEDS: Acetaminophen 500 MG TAB PO PRN (05:24)
[2020-03-09] MEDS: Carvedilol 25 MG TAB PO SCH ×2 (09:09→20:41)
[2020-03-09] MEDS: Calcium Acetate 667 MG CAP PO SCH ×3 (09:09→17:08)
[2020-03-09] MEDS: NIFEdipine XL 30 MG TAB PO SCH (09:10)
[2020-03-09] MEDS: prednisoLONE 1% Ophth Susp 5 ml Bottle EA EYE SCH (09:11)
[2020-03-09] MEDS: Losartan Potassium 50 MG TAB PO SCH (09:11)
[2020-03-09] MEDS: HumuLIN 70/30 (300 UNITS/3 ML VIAL) SC SCH (09:11)
[2020-03-09] MEDS: HumaLOG 300 UNITS/3 ML VIAL SC PRN (11:39)
--- NOTE | 2020-03-09 13:16 | PRG ---
DATE OF SERVICE: 03/09/2020 SUBJECTIVE: Mr. Singh is doing well. He is up in his chair. He denies any questions or concerns. Soreness is improving. No family at bedside. Discussed with nursing. OBJECTIVE: VITAL SIGNS: He is afebrile, heart rate 80, respirations 20, oxygen saturation 95% on room air, blood pressure 140/68. CARDIOVASCULAR: S1 and S2 plus. RESPIRATORY: Normal vesicular breath sounds. ABDOMEN: Soft, nontender. Bowel sounds heard in all quadrants. EXTREMITIES: Without cyanosis or clubbing. CENTRAL NERVOUS SYSTEM: Improving deconditioning. IMPRESSION: 1. Right-sided pleural effusion and hemothorax, status post thoracotomy and decortication. 2. Diabetes mellitus type 2. 3. Hypertension. 4. Dyslipidemia. 5. End-stage renal disease. 6. History of CVA with residual left-sided weakness. PLAN: 1. Continue current medications. 2. 1800 calorie heart healthy ADA renal diet. 3. Continue hemodialysis. 4. Accu-Cheks with sliding scale coverage. 5. Physical therapy. 6. DVT prophylaxis with PlexiPulses. 7. Decubitus precautions. 8. Stress ulcer prophylaxis. 9. Routine laboratory values. Job ID: [id number]
[2020-03-09] MEDS: Atorvastatin Calcium 20 MG TAB PO SCH (20:42)
[2020-03-10] MEDS: Calcium Acetate 667 MG CAP PO SCH ×3 (08:22→17:02)
[2020-03-10] MEDS: HumuLIN 70/30 (300 UNITS/3 ML VIAL) SC SCH (08:22)
[2020-03-10] MEDS: Acetaminophen 500 MG TAB PO PRN ×2 (08:22→22:13)
[2020-03-10] MEDS: Losartan Potassium 50 MG TAB PO SCH (08:23)
[2020-03-10] MEDS: Carvedilol 25 MG TAB PO SCH ×2 (08:23→20:35)
[2020-03-10] MEDS: prednisoLONE 1% Ophth Susp 5 ml Bottle EA EYE SCH (08:23)
[2020-03-10] MEDS: NIFEdipine XL 30 MG TAB PO SCH (08:23)
[2020-03-10] MEDS: Atorvastatin Calcium 20 MG TAB PO SCH (20:35)
[2020-03-10] MEDS: HumaLOG 300 UNITS/3 ML VIAL SC PRN (20:46)
[2020-03-11] MEDS: Calcium Acetate 667 MG CAP PO SCH ×3 (08:13→17:36)
[2020-03-11] MEDS: Losartan Potassium 50 MG TAB PO SCH (08:13)
[2020-03-11] MEDS: Carvedilol 25 MG TAB PO SCH ×2 (08:13→20:22)
[2020-03-11] MEDS: NIFEdipine XL 30 MG TAB PO SCH (08:14)
[2020-03-11] MEDS: prednisoLONE 1% Ophth Susp 5 ml Bottle EA EYE SCH (08:14)
[2020-03-11] MEDS: HumuLIN 70/30 (300 UNITS/3 ML VIAL) SC SCH (08:16)
--- NOTE | 2020-03-11 09:10 | PRG ---
DATE OF SERVICE: 03/11/2020 SUBJECTIVE: Mr. Singh is resting in bed. He denies any complaints. He just ate his cereals. He states that he cannot eat . I have asked the nursing to check and see if we can get some jimenez sausage. Denies any other concerns or questions. His soreness is slowly improving. OBJECTIVE: VITAL SIGNS: He is afebrile, heart rate 87, respirations 20, oxygen saturation 98% on room air, blood pressure elevated this morning at 191/91. He used to get carvedilol, but at 9 o'clock as well as his Cozaar is scheduled for 9 and his Procardia. CARDIOVASCULAR SYSTEM: S1 and S2 plus. RESPIRATORY SYSTEM: Normal vesicular breath sounds. ABDOMEN: Soft and nontender. Bowel sounds heard in all quadrants. EXTREMITIES: Without cyanosis or clubbing. CENTRAL NERVOUS SYSTEM: Improving deconditioning. LABORATORY DATA: Blood sugars are 116, 141, 162, and 121. IMPRESSION: 1. Right-sided pleural effusion and pneumothorax, status post thoracotomy and decortication. 2. Diabetes mellitus type 2, well controlled. 3. Hypertension, not well controlled. I advised nursing to recheck his blood pressure after giving him his morning medications. 4. Dyslipidemia. 5. End-stage renal disease, on hemodialysis. 6. History of cerebrovascular accident with residual left-sided weakness. PLAN: 1. Continue current medications. 2. 1800 calorie heart healthy ADA renal diet. 3. Accu-Cheks with sliding scale coverage. 4. Adjusting timing of blood pressure medications. 5. DVT prophylaxis with PlexiPulses. 6. Decubitus precaution. 7. Physical therapy. 8. Routine laboratory values. 9. Continue hemodialysis. Job ID: [id number]
[2020-03-11] MEDS: HumaLOG 300 UNITS/3 ML VIAL SC PRN ×2 (17:37→20:25)
[2020-03-11] MEDS: Atorvastatin Calcium 20 MG TAB PO SCH (20:22)
[2020-03-11] MEDS: Acetaminophen 500 MG TAB PO PRN (20:22)
[2020-03-12] MEDS: HumaLOG 300 UNITS/3 ML VIAL SC PRN ×2 (06:06→20:20)
[2020-03-12] MEDS: Calcium Acetate 667 MG CAP PO SCH ×3 (08:01→17:11)
[2020-03-12] MEDS: prednisoLONE 1% Ophth Susp 5 ml Bottle EA EYE SCH (08:02)
[2020-03-12] MEDS: Carvedilol 25 MG TAB PO SCH ×2 (08:17→20:15)
[2020-03-12] MEDS: HumuLIN 70/30 (300 UNITS/3 ML VIAL) SC SCH (08:17)
[2020-03-12] MEDS: NIFEdipine XL 30 MG TAB PO SCH (08:17)
[2020-03-12] MEDS: Losartan Potassium 50 MG TAB PO SCH (08:17)
[2020-03-12] MEDS: Loperamide HCl 2 MG CAP PO PRN (09:03)
--- NOTE | 2020-03-12 18:30 | PRG ---
DATE OF SERVICE: 03/12/2020 SUBJECTIVE: Mr. Singh is doing the same. Discussed with Therapy yesterday, and they stated that he has pretty much reached his baseline. Discussed with nursing, and nursing stated that he apparently has all his DME at home. Plan is to discharge him home on Saturday after arranging home health. The patient is tolerating his hemodialysis. OBJECTIVE: VITAL SIGNS: He is afebrile, heart rate 81, respirations 20, oxygen saturation 96% on room air, blood pressure 140/71. CARDIOVASCULAR: S1 and S2 plus. RESPIRATORY: Normal vesicular breath sounds. ABDOMEN: Soft and nontender. Bowel sounds heard in all quadrants. EXTREMITIES: Without cyanosis or clubbing. CENTRAL NERVOUS SYSTEM: Improving deconditioning. IMPRESSION: 1. End-stage renal disease, on hemodialysis. 2. Diabetes mellitus, type 2. 3. Hypertension. 4. Dyslipidemia. 5. History of cerebrovascular accident. 6. Poor vision. 7. Right-sided pleural effusion with hemothorax, status post thoracotomy and decortication. PLAN: 1. Continue current medications. 2. 1800-calorie heart-healthy ADA renal diet. 3. Accu-Cheks with sliding scale coverage. 4. Discharge planning. 5. Continue hemodialysis. 6. Anticipate discharging to home on Saturday with home health. Job ID: [id number]
[2020-03-12] MEDS: Atorvastatin Calcium 20 MG TAB PO SCH (20:15)
[2020-03-12] MEDS: Acetaminophen 500 MG TAB PO PRN (20:15)
[2020-03-13] MEDS: HumaLOG 300 UNITS/3 ML VIAL SC PRN ×3 (05:52→20:56)
[2020-03-13] MEDS: Calcium Acetate 667 MG CAP PO SCH ×3 (08:10→16:33)
[2020-03-13] MEDS: Carvedilol 25 MG TAB PO SCH ×2 (08:10→20:53)
[2020-03-13] MEDS: HumuLIN 70/30 (300 UNITS/3 ML VIAL) SC SCH (08:11)
[2020-03-13] MEDS: Losartan Potassium 50 MG TAB PO SCH (08:12)
[2020-03-13] MEDS: NIFEdipine XL 30 MG TAB PO SCH (08:13)
[2020-03-13] MEDS: prednisoLONE 1% Ophth Susp 5 ml Bottle EA EYE SCH (08:13)
--- NOTE | 2020-03-13 15:35 | PRG ---
DATE OF SERVICE: 03/13/2020 SUBJECTIVE: Mr. Singh is sleeping in his wheelchair. He denies any questions or concerns. I informed him that the plan is for him to be discharged tomorrow. He states that he has all the DME he needs. He apparently uses [facility]. I do not see any new medications. He will follow up with his PCP. OBJECTIVE: VITAL SIGNS: He is afebrile. Heart rate 85, respirations 18, oxygen saturation 99% on room air, blood pressure 175/82. Again, this was done before his morning medicine and I advised nursing to make sure they recheck it again an hour after he getting his medications. CARDIOVASCULAR: S1 and S2 plus. RESPIRATORY: Normal vesicular breath sounds. ABDOMEN: Soft, nontender. Bowel sounds heard in all quadrants. EXTREMITIES: Without cyanosis or clubbing. CENTRAL NERVOUS SYSTEM: Improving deconditioning. Bacterial culture from his chest drainage site shows presence of Enterococcus. It looks more like colonization as clinically he does not show any sign of infection. IMPRESSION: 1. Right-sided pleural effusion with hemothorax, status post thoracotomy and decortication. 2. End-stage renal disease, on hemodialysis. 3. Diabetes mellitus type 2. 4. Hypertension. 5. Dyslipidemia. 6. Poor vision. PLAN: 1. Continue current medications. 2. 1800 calorie heart healthy ADA renal diet. 3. Accu-Cheks with sliding scale coverage. 4. Discharge to home tomorrow. 5. Arrange home health. 6. The patient has all DME. 7. Reviewed medications and he is not on any new medications or does not need any prescriptions. 8. Therapy has informed his . Job ID: [id number]
[2020-03-13] MEDS: Atorvastatin Calcium 20 MG TAB PO SCH (20:53)
[2020-03-14 07:55] VITALS: BP 143/77; TEMP 98
[2020-03-14] MEDS: prednisoLONE 1% Ophth Susp 5 ml Bottle EA EYE SCH (08:36)
[2020-03-14] MEDS: Calcium Acetate 667 MG CAP PO SCH ×2 (08:36→11:46)
[2020-03-14] MEDS: HumuLIN 70/30 (300 UNITS/3 ML VIAL) SC SCH (08:37)
[2020-03-14] MEDS: Carvedilol 25 MG TAB PO SCH (08:37)
[2020-03-14] MEDS: NIFEdipine XL 30 MG TAB PO SCH (08:38)
[2020-03-14] MEDS: Losartan Potassium 50 MG TAB PO SCH (08:38)
[2020-03-14] MEDS: Acetaminophen 500 MG TAB PO PRN (08:41)
[2020-03-14] MEDS: HumaLOG 300 UNITS/3 ML VIAL SC PRN (11:46)
--- NOTE | 2020-03-14 13:34 | DIS ---
DATE OF ADMISSION: 03/02/2020 DATE OF DISCHARGE: 03/14/2020 PRINCIPAL DIAGNOSES: 1. Right pleural effusion and hemothorax requiring thoracotomy and total lung decortication. 2. Acute hypoxemic respiratory failure, which has resolved. 3. End-stage renal disease, on hemodialysis, Saturday, , and Saturday. 4. Diabetes mellitus type 2. 5. Hypertension. 6. Dyslipidemia. 7. History of CVA with residual left-sided weakness. 8. Recent episode of syncope. No further episodes since admission. 9. Legally blind. 10. Improving deconditioning. COMPLICATIONS: None. ADVERSE REACTIONS: None. PROCEDURES: None. CONSULTATIONS: Physical Therapy and Occupational Therapy. HOSPITAL COURSE: The patient was admitted as a transfer from [facility], where he was admitted with acute hypoxemic respiratory failure. He was diagnosed with pleural effusion with midline shift. He underwent video-assisted thoracoscopy with muscle sparing thoracotomy and pleural decortication. All his chest tubes have been removed. He was felt to be a candidate for rehabilitation and so transferred here. He has improved with therapy and is pretty much back to his baseline and was felt safe to go home. I spoke with his and he apparently has a home health company called . The patient does qualify for home health and this document is to be used for [id number] documentation. The patient is homebound because of legal blindness and inability to drive. He apparently is recommended by Therapy to have retirement visit to monitor his vital signs given his recent history of syncope and hypoxemic respiratory failure. They also feel like he may benefit from physical therapy and occupational therapy. The patient is to follow up with his regular physician in the next 7 to 10 days, with his regular physician to follow all orders for therapy. This document is to be used as the [id number]. I reviewed his medications and he is not on any new medications, so he does not need any prescriptions. PHYSICAL EXAMINATION: VITAL SIGNS: On the date of discharge, he is afebrile. Heart rate 83, respirations 18, oxygen saturation 96% on room air, blood pressure 143/77. CARDIOVASCULAR: S1 and S2 plus. RESPIRATORY: Normal vesicular breath sounds. ABDOMEN: Soft, nontender. Bowel sounds heard in all quadrants. EXTREMITIES: Without cyanosis or clubbing. CENTRAL NERVOUS SYSTEM: Generalized weakness, legally blind, otherwise nonfocal. DISCHARGE MEDICATIONS: Same as admission, which are; 1. Aspirin 81 mg daily. 2. Colace 10 mg daily as needed. 3. PhosLo 2668 mg t.i.d. with meals and 1334 mg with snacks. 4. Refresh eyedrops 1 to 2 drops in each eye. 5. Carvedilol 37.5 mg b.i.d. 6. Humulin 70/30, 20 units daily. 7. Imodium 2 mg as needed for diarrhea. 8. Losartan 50 mg daily. 9. Procardia XL 60 mg daily. 10. Prednisolone eyedrops 1 drop to each eye daily. 11. Simvastatin 40 mg at bedtime. DISCHARGE INSTRUCTIONS: The patient to follow on 1800 calorie heart healthy ADA renal diet. Continue hemodialysis, Saturday, , Saturday follow up with his PCP and with kidney physician. Family was instructed to call me with any questions or concerns. For full details, please see chart. LABORATORY DATA: Last lab work I have on the patient is from the when his white count was 11.3, hemoglobin and hematocrit are 8.4 and 28.5. Blood sugars are 159, 181, 134, and 160. TIME SPENT: Total time spent on this discharge including coordination of care, 35 minutes. Job ID: [id number]
== END 2020-03-14 13:45 | disposition home health service (06) | DRG 186 ==
LOC: NAV ACUTE 19:15 → UNDOADMIN 19:15 → UNDODISIN 03-14 13:45
PROVIDERS: ADMIT Internal Medicine; ATTEND Internal Medicine
DX: J90 Pleural effusion, not elsewhere classified (principal); J96.01 Acute respiratory failure with hypoxia; N18.6 End stage renal disease; I12.0 Hypertensive chronic kidney disease with stage 5 chronic kidney disease or end stage renal disease; I69.354 Hemiplegia and hemiparesis following cerebral infarction affecting left non-dominant side; J94.2 Hemothorax; E11.22 Type 2 diabetes mellitus with diabetic chronic kidney disease; E78.5 Hyperlipidemia, unspecified; R53.81 Other malaise; D63.8 Anemia in other chronic diseases classified elsewhere; H54.8 Legal blindness, as defined in USA; Z79.4 Long term (current) use of insulin; Z99.2 Dependence on renal dialysis
CPT/HCPCS: 36415; 36416; 80053; 85025; 87070; 87077; 87186; 87205; 87324; 87449; J1815; Q0162